=== PATIENT | female | born 1960 | race Caucasian/White ===

== ENCOUNTER 2019-04-28 06:00 | Outpatient (RCR) | payer MEDICAID, SELFPAY | END 2019-05-28 00:01 | LOC: SPT 06:00 | PROVIDERS: Family Provider Family Medicine; Visit Provider Family Medicine | DX: M54.2 Cervicalgia (principal); M54.9 Dorsalgia, unspecified; G89.29 Other chronic pain | CPT/HCPCS: 97110 ×4; 97530 ==

== ENCOUNTER 2019-05-29 06:00 | Outpatient (RCR) | payer MEDICAID, SELFPAY | END 2019-06-28 23:59 | disposition home or self-care (01) | LOC: SPT 06:00 | PROVIDERS: Family Provider Family Medicine; PCP Family Medicine; Visit Provider Family Medicine | DX: G89.29 Other chronic pain (principal); M54.2 Cervicalgia; M54.9 Dorsalgia, unspecified | CPT/HCPCS: 97110 ==

== ENCOUNTER 2019-06-25 15:30 | Outpatient (CLI) | payer MEDICAID, SELFPAY ==
--- NOTE | 2019-06-25 15:50 | XR_ITS ---
WS: [id number] LUMBAR SPINE TECHNIQUE: 3 views of the lumbar spine CLINICAL INFORMATION: BACK PAIN COMPARISON: None. FINDINGS: Mild lumbar curve convex left. Cholecystectomy clips. Normal lumbar alignment. Mild disc space narrow ing L5-S1. Mild facet arthropathy L5-S1. Five [id number] lumbar vertebral bodies. No compression fractures.No spondylolisthesis. Visualiz ed sacroiliac joints are normal. Normal visualized soft tissues. Partially visualized bowel gas patte rn is normal. XR/XR lumbar spine 2-3V* [id number] IMPRESSION: 1. Mild lumbar curve convex left. 2. No acute compression fractures. 3. Mild disc space narrowing L4-L5 and L5-S1. 4. No acute appearing compression fractures.
--- NOTE | 2019-06-25 15:51 | XR_ITS ---
WS: [id number] SHOULDER LEFT TECHNIQUE: 3 views of the left shoulder CLINICAL INFORMATION: LEFT SHOULDER PAIN COMPARISON: FINDINGS: Normal acromioclavicular joint. Normal glenohumeral joint. Acromion is normal in appearance. Normal g lenoid. No evidence of acute fracture dislocation. XR/XR shoulder LT min 2V* [id number] IMPRESSION: Normal left shoulder.
== END 2019-06-25 15:31 | disposition home or self-care (01) ==
LOC: RADWPI 15:34
PROVIDERS: Family Provider Family Medicine; PCP Family Medicine; Visit Provider Family Medicine
DX: M54.5 Low back pain (principal); M25.512 Pain in left shoulder
CPT/HCPCS: 72100; 73030

== ENCOUNTER 2019-06-29 06:00 | Outpatient (RCR) | payer MEDICAID, SELFPAY | END 2019-07-27 23:59 | disposition home or self-care (01) | LOC: SPT 06:00 | PROVIDERS: Family Provider Family Medicine; PCP Family Medicine; Visit Provider Family Medicine | DX: M54.2 Cervicalgia (principal); M54.9 Dorsalgia, unspecified; G89.29 Other chronic pain | CPT/HCPCS: 97110; 97124; 97530 ==

== ENCOUNTER 2019-07-16 13:21 | Outpatient (CLI) | payer MEDICAID, SELFPAY ==
--- NOTE | 2019-07-16 13:30 | MM_ITS ---
WS: [id number] SCREENING DIGITAL MAMMOGRAM WITH CAD HISTORY: screening mammogram COMPARISON: 06/19/2018 and 05/30/2017 Bilateral CC and MLO views submitted. Computer aided detection analyzed. Breast composition: There are scattered areas of fibroglandular density. No suspicious masses, microc alcifications or architectural distortion. Bilateral vascular calcifications. MM/[place] [id number] IMPRESSION: BI-RADS: 2-Benign FOLLOW UP: 1 Year Follow-up
== END 2019-07-16 13:22 | disposition home or self-care (01) ==
LOC: RADSHAW 13:25
PROVIDERS: Family Provider Family Medicine; PCP Family Medicine; Visit Provider Family Medicine
DX: Z12.31 Encounter for screening mammogram for malignant neoplasm of breast (principal)
CPT/HCPCS: 77067

== ENCOUNTER → 2019-08-07 12:00 | Outpatient (BNVA) | payer MEDICAID, SELFPAY | PROVIDERS: Family Provider Family Medicine; PCP Family Medicine; Visit Provider Internal Medicine | DX: B19.20 Unspecified viral hepatitis C without hepatic coma (principal); Z86.19 Personal history of other infectious and parasitic diseases; K74.60 Unspecified cirrhosis of liver; R76.8 Other specified abnormal immunological findings in serum | CPT/HCPCS: 82105; 87522 ==

== ENCOUNTER 2019-10-16 09:07 | Outpatient (CLI) | payer MEDICAID, SELFPAY ==
--- NOTE | 2019-10-16 09:12 | US_ITS ---
WS: [id number] ULTRASOUND ABDOMEN LIMITED CLINICAL INFORMATION: History of liver cirrhosis. Right upper quadrant pain. COMPARISON: None. FINDINGS: Liver Size: Mild hepatomegaly Craniocaudal length: 16.1 cm. Echogenicity: Coarse echogenicity consistent with hepatocellular disease. Surface nodularity: Present Mass (size and location): None. Bile ducts Intrahepatic ducts: Normal. Common bile duct diameter: 0.5 cm. Gallbladder Cholecystectomy Pancreas Normal as visualized. Right kidney: Normal. Hydronephrosis: None. Size: 11.2 cm x 4.9 cm x 3.6 cm. Abdominal aorta and IVC Visualized portions are normal. Ascites: None. US/US liver [id number] IMPRESSION: 1. Mild hepatomegaly with cirrhotic liver. 2. Prior cholecystectomy. 3. Common bile duct measures 5.3 mm. 4. No hydronephrosis in right kidney.
--- NOTE | 2019-10-16 09:12 | XRR_ITS ---
PROCEDURE INFORMATION: Exam: XR Left Shoulder Exam date and time: 10/16/2019 9:13 AM Age: 58 years old Clinical indication: Pain; Shoulder; Left; Additional info: Left shoulder TECHNIQUE: Imaging protocol: XR Left shoulder. Views: 2 or more views. COMPARISON: CR XR shoulder LT min 2V* [id number] 06/25/2019 3:59 PM FINDINGS: Bones/joints: Visualized portions of the clavicle normal. Moderate degenerative changes of the acromioclavicular joint. Glenohumeral joint normal Scapula normal Visualized ribs and visualized pulmonary parenchyma normal Coracoid process normal Soft tissues: Normal. XR/XR shoulder LT min 2V* [id number] IMPRESSION: Moderate degenerative changes of the acromioclavicular joint.
--- NOTE | 2019-10-16 09:12 | XRR_ITS ---
PROCEDURE INFORMATION: Exam: XR Lumbosacral Spine, 2 or 3 Views Exam date and time: 10/16/2019 9:13 AM Age: 58 years old Clinical indication: Low back pain TECHNIQUE: Imaging protocol: XR of the lumbosacral spine, 2 or 3 views. COMPARISON: CR XR lumbar spine 2-3V* [id number] 06/25/2019 3:59 PM FINDINGS: Vertebrae: Moderate degenerative disc disease diffusely reflected as decrease in disc space height and anterior endplate osteophytosis. No spondylolisthesis No pars defect. No fracture. Severe facet hypertrophic changes L4-L5 Soft tissues: Normal. XR/XR lumbar spine 2-3V* [id number] IMPRESSION: Moderate diffuse degenerative disc disease.
== END 2019-10-16 09:08 | disposition home or self-care (01) ==
LOC: RAD 09:08
PROVIDERS: PCP Family Medicine; Visit Provider Internal Medicine
DX: K74.60 Unspecified cirrhosis of liver (principal); M25.512 Pain in left shoulder; R10.11 Right upper quadrant pain; R16.0 Hepatomegaly, not elsewhere classified; M51.36 Other intervertebral disc degeneration, lumbar region
CPT/HCPCS: 72100; 73030; 76705

== ENCOUNTER 2019-10-18 11:14 | Outpatient (CLI) | payer MEDICAID, SELFPAY ==
--- NOTE | 2019-10-18 11:20 | XRR_ITS ---
PROCEDURE INFORMATION: Exam: XR Chest, 2 Views Exam date and time: 10/18/2019 11:57 AM Age: 58 years old Clinical indication: Cough TECHNIQUE: Imaging protocol: XR of the chest Views: 2 views. COMPARISON: CR Chest 1 [place] [id number] 03/01/2019 11:46 AM FINDINGS: Lungs: The lungs are hyperinflated and hyperlucent, with architectural changes compatible with emphysema. No pneumonia or pulmonary edema. Calcified granuloma in the right lung apex. Pleural space: No pleural effusion. No pneumothorax. Heart/Mediastinum: The cardiac silhouette is not enlarged. Bones/joints: Old right 8th rib fracture. Multilevel mild disc degeneration in the thoracic spine. Other findings: There is a left epicardial fat pad. XR/XR chest 2V* [id number] IMPRESSION: Emphysema.
== END 2019-10-18 11:15 | disposition home or self-care (01) ==
LOC: RAD 11:16
PROVIDERS: PCP Family Medicine; Visit Provider Nurse Practitioner Family
DX: R05 Cough (principal); J43.9 Emphysema, unspecified; R10.11 Right upper quadrant pain; K74.60 Unspecified cirrhosis of liver; F10.10 Alcohol abuse, uncomplicated; R53.83 Other fatigue
CPT/HCPCS: 71046; 80053; 80307; 85025; 85610

== ENCOUNTER 2019-10-22 12:36 | Outpatient (CLI) | payer MEDICAID, SELFPAY ==
[2019-10-22 13:14] LABS: Ammonia 49 umol/L (11-51)
[2019-10-22 13:21] LABS: Alcohol Level < 10 mg/dL (0-10)
== END 2019-10-22 12:37 | disposition home or self-care (01) ==
LOC: LAB 12:38
PROVIDERS: PCP Family Medicine; Visit Provider Nurse Practitioner Family
DX: F10.10 Alcohol abuse, uncomplicated (principal); R10.11 Right upper quadrant pain
CPT/HCPCS: 80307; 82140

== ENCOUNTER → 2020-01-16 14:41 | Outpatient (BNVA) | payer MEDICAID, SELFPAY | PROVIDERS: PCP Family Medicine; Visit Provider Family Medicine | DX: Z11.51 Encounter for screening for human papillomavirus (HPV) (principal); Z12.4 Encounter for screening for malignant neoplasm of cervix | CPT/HCPCS: 88175 ==

== ENCOUNTER 2020-02-06 08:28 | Outpatient (CLI) | payer MEDICAID, SELFPAY ==
--- NOTE | 2020-02-06 08:35 | CT_ITS ---
WS: [id number] LDCT LUNG CANCER SCREENING TECHNIQUE: Noncontrast CT of the chest with coronal and sagittal reformatted images. CLINICAL INFORMATION: HX OF TOBACCO USE COMPARISON: DLP: 57.79 mGy.cm DIvol: 1.[address] scans at [facility] use at least one of these dose optimization techniques: automat ed exposure control; mA and/or kV adjustment per patient size (includes targeted exams where dose is matched to clinical indication); or iterative reconstruction. FINDINGS: Calcified granuloma is right upper lobe. Moderate chronic emphysematous changes. Tiny 1 mm noncalcifi ed pulmonary nodule left upper lobe. No other suspicious pulmonary parenchymal opacities. No mediasti nal or hilar lymphadenopathy. Adrenal glands are normal. Thoracic kyphosis with chronic anterior wedg ing in the mid thoracic spine. CT/CT lung screening [id number] IMPRESSION: LUNG-RADS: 2-Benign Appearance or Behavior FOLLOW UP: 12 Month: Continue annual screening with LDCT
== END 2020-02-06 08:29 | disposition home or self-care (01) ==
LOC: RAD 08:30
PROVIDERS: PCP Family Medicine; Visit Provider Family Medicine
DX: Z12.2 Encounter for screening for malignant neoplasm of respiratory organs (principal); Z87.891 Personal history of nicotine dependence
CPT/HCPCS: G0297

== ENCOUNTER → 2020-03-03 08:23 | Outpatient (BNVA) | payer MEDICAID, SELFPAY | PROVIDERS: PCP Family Medicine Adult Medicine; Visit Provider Family Medicine Adult Medicine | DX: Z11.59 Encounter for screening for other viral diseases (principal); J21.9 Acute bronchiolitis, unspecified; J44.9 Chronic obstructive pulmonary disease, unspecified | CPT/HCPCS: 87635 ==

== ENCOUNTER → 2020-05-12 09:38 | Outpatient (BNVA) | payer MEDICAID, SELFPAY | PROVIDERS: PCP Family Medicine Adult Medicine; Visit Provider Family Medicine Adult Medicine | DX: K74.60 Unspecified cirrhosis of liver (principal); E78.5 Hyperlipidemia, unspecified; N18.2 Chronic kidney disease, stage 2 (mild); Z23 Encounter for immunization; M19.90 Unspecified osteoarthritis, unspecified site; Z00.00 Encounter for general adult medical examination without abnormal findings; J44.9 Chronic obstructive pulmonary disease, unspecified | CPT/HCPCS: 80053; 80061; 85025 ==

== ENCOUNTER 2020-06-05 11:04 | Outpatient (CLI) | payer MEDICAID, SELFPAY ==
--- NOTE | 2020-06-05 11:30 | XR_ITS ---
WS: [id number] HIP WITH PELVIS LEFT TECHNIQUE: 3 views of the left hip with pelvis CLINICAL INFORMATION: chronic left hip pain COMPARISON: None. FINDINGS: Osteopenia. Moderate degenerative arthritis left hip with joint space narrowing. No acute fractures. Normal visualized left pubic rami. XR/XR hip LT 2-3V wo/w pel* [id number] IMPRESSION: 1. Osteopenia with moderate degenerative arthritis left hip. 2. No acute fractures.
== END 2020-06-05 11:05 | disposition home or self-care (01) ==
LOC: RADWPI 11:09
PROVIDERS: PCP Family Medicine Adult Medicine; Visit Provider Family Medicine Adult Medicine
DX: M25.552 Pain in left hip (principal); G89.29 Other chronic pain; M85.88 Other specified disorders of bone density and structure, other site
CPT/HCPCS: 73502

== ENCOUNTER → 2020-08-19 09:57 | Outpatient (BNVA) | payer MEDICAID, SELFPAY | PROVIDERS: PCP Family Medicine Adult Medicine; Visit Provider Anesthesiology Pain Medicine | DX: M16.12 Unilateral primary osteoarthritis, left hip (principal); M51.36 Other intervertebral disc degeneration, lumbar region; M47.816 Spondylosis without myelopathy or radiculopathy, lumbar region | CPT/HCPCS: 99204 ==

== ENCOUNTER → 2020-08-26 13:52 | Outpatient (BNVA) | payer MEDICAID, SELFPAY | PROVIDERS: PCP Family Medicine Adult Medicine; Visit Provider Anesthesiology Pain Medicine | DX: M16.12 Unilateral primary osteoarthritis, left hip (principal) | CPT/HCPCS: 20610; 77002; J1030; J3490 ==

== ENCOUNTER → 2020-08-31 07:46 | Outpatient (BNVA) | payer MEDICAID, SELFPAY | PROVIDERS: PCP Family Medicine Adult Medicine; Visit Provider Family Medicine Adult Medicine | DX: Z01.419 Encounter for gynecological examination (general) (routine) without abnormal findings (principal); Z78.9 Other specified health status | CPT/HCPCS: 88175 ==

== ENCOUNTER → 2020-09-30 08:22 | Outpatient (BNVA) | payer MEDICAID, SELFPAY | PROVIDERS: PCP Family Medicine Adult Medicine; Visit Provider Anesthesiology Pain Medicine | DX: G89.29 Other chronic pain (principal); M16.12 Unilateral primary osteoarthritis, left hip; M51.36 Other intervertebral disc degeneration, lumbar region; M47.816 Spondylosis without myelopathy or radiculopathy, lumbar region; M54.2 Cervicalgia | CPT/HCPCS: 99214 ==

== ENCOUNTER → 2020-10-29 09:16 | Outpatient (BNVA) | payer MEDICAID, SELFPAY | PROVIDERS: PCP Family Medicine Adult Medicine; Referring Provider Anesthesiology Pain Medicine; Visit Provider Specialist | DX: M16.0 Bilateral primary osteoarthritis of hip (principal) | CPT/HCPCS: 73502 ==

== ENCOUNTER 2020-11-18 16:31 | Outpatient (CLI) | payer MEDICAID, SELFPAY ==
--- NOTE | 2020-11-18 17:06 | MR_ITS ---
WS: [id number] MRI LEFT HIP without CONTRAST. COMPARISON: Radiographs 10/29/2020 and 06/05/2020 Multiplanar, multisequence imaging is performed without contrast. Moderate to severe narrowing of the LEFT hip joint. There is increased T2 signal in the LEFT hip join t and surrounding the capsule. Marrow edema and cystic changes in the superior acetabulum. There is o steophytic ridging surrounding the acetabulum. Irregularity involving the femoral head from loss of c artilage. Numerous subchondral cystic and osteochondral changes are noted in the acetabulum involving an area of approximately 3.7 x 2.6 cm. No loose body is noted in the LEFT hip joint. No free fluid or adenopathy within the pelvis. The RIGHT hip demonstrates only mild osteoarthritic ch anges and osteophytic ridging around the acetabulum. MR/MR hip LT con* [id number] IMPRESSION: 1. Moderate to severe LEFT hip joint osteophyte arthritis. 2. Numerous subchondral cystic changes and marrow edema involving the superior acetabulum. No loose body identified. 3. Loss of the normal cartilage surrounding the LEFT femoral head. 4. Mild LEFT hip synovitis.
== END 2020-11-18 16:32 | disposition home or self-care (01) ==
LOC: RADSHAW 16:34
PROVIDERS: PCP Family Medicine Adult Medicine; Visit Provider Specialist
DX: M25.552 Pain in left hip (principal); M65.88 Other synovitis and tenosynovitis, other site; M13.852 Other specified arthritis, left hip
CPT/HCPCS: 73721

== ENCOUNTER → 2020-11-24 09:37 | Outpatient (BNVA) | payer MEDICAID, SELFPAY | PROVIDERS: PCP Family Medicine Adult Medicine; Visit Provider Family Medicine Adult Medicine | DX: K74.60 Unspecified cirrhosis of liver (principal); N18.2 Chronic kidney disease, stage 2 (mild); E78.5 Hyperlipidemia, unspecified; M16.12 Unilateral primary osteoarthritis, left hip | CPT/HCPCS: 80053; 80061; 83036; 84443; 85025 ==

== ENCOUNTER → 2020-12-08 09:34 | Day surgery (SDC) | payer MEDICAID, SELFPAY | PROVIDERS: PCP Family Medicine Adult Medicine; Visit Provider Specialist | DX: Z01.818 Encounter for other preprocedural examination (principal) | CPT/HCPCS: 93005 ==

== ENCOUNTER 2020-12-10 14:56 | Outpatient (CLI) | payer MEDICAID, SELFPAY ==
--- NOTE | 2020-12-10 15:01 | MM_ITS ---
WS: [id number] BILATERAL DIGITAL SCREENING MAMMOGRAPHY WITH CAD CLINICAL INFORMATION: last mammogram jun 2019 with f/u in one year HISTORY: Screening mammogram. No current complaints. COMPARISON: July 16, 2019 TECHNIQUE: Bilateral CC and MLO views. FINDINGS: Scattered fibroglandular densities bilaterally. No suspicious focal mass, asymmetry, calcifications, or architectural distortion. No evidence of malignancy. Vascular calcification. MM/[place] [id number] IMPRESSION: BI-RADS: 2-Benign FOLLOW UP: 1 Year Follow-up Recommend return to annual screening mammography.
== END 2020-12-10 14:57 | disposition home or self-care (01) ==
LOC: RADSHAW 14:59
PROVIDERS: PCP Family Medicine Adult Medicine; Visit Provider Family Medicine Adult Medicine
DX: Z20.822 Contact with and (suspected) exposure to COVID-19 (principal); Z12.31 Encounter for screening mammogram for malignant neoplasm of breast
CPT/HCPCS: 77067; 87635

== ENCOUNTER 2020-12-15 06:28 | Observation (INO) | payer MEDICAID, SELFPAY | END 2020-12-17 11:30 | disposition admitted as inpatient to this hospital (09) | LOC: MEDSURG 04-06 11:26 | PROVIDERS: Admitting Provider Specialist; PCP Family Medicine Adult Medicine; Visit Provider Specialist | DX: M16.12 Unilateral primary osteoarthritis, left hip (principal); M87.852 Other osteonecrosis, left femur; J44.9 Chronic obstructive pulmonary disease, unspecified; N18.2 Chronic kidney disease, stage 2 (mild); E78.5 Hyperlipidemia, unspecified; F41.1 Generalized anxiety disorder; K21.9 Gastro-esophageal reflux disease without esophagitis; Z79.899 Other long term (current) drug therapy; Z87.891 Personal history of nicotine dependence | CPT/HCPCS: 27130; 36415; 36416; 72170; 80048; 80053; 81003; 82962; 85025; 88305; 88311; 94640; 96365; 97110; 97116; 97161; 97165; 97530; 97535; C1776; G0378; G0379; J0690; J1170; J2704; J3010; J3370; J3490; J3535; J7030; J7611; J7644 ==

== ENCOUNTER 2020-12-15 11:47 | Inpatient (IN) | payer MEDICAID, SELFPAY ==
[2020-12-08 09:14] VITALS: BMI 26.1
--- NOTE | 2020-12-08 09:34 | ECG_ITS ---
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 Measurements Intervals [place] Rate: 79 P: 71 [place]: 218 QRS: -10 QRSD: 89 T: 60 QT: 390 QTc: 448 Interpretive Statements SINUS RHYTHM WITH FIRST DEGREE AV BLOCK POSSIBLE ANTERIOR MYOCARDIAL INFARCTION [30 ms Q WAVE IN V3/V4, OR R < 0.2 mV IN V4], PROBABLY OLD Compared to ECG 01/29/2018 10:51:05 First degree AV block now present Sinus tachycardia no longer present Myocardial infarct finding still present Electronically Signed On 12-09-2020 0:36:52 CDT by Daina Deutsch M.D. [id number]
--- NOTE | 2020-12-08 10:06 | ANES.PREANE2 ---
Pre-Anesthetic Assessment Pre-Anesthetic Assessment: Height/Weight: Height 1.68 m Weight 73.482 kg Proposed Procedure: Operation Date: 12/15/20 10:50 Proposed Procedures p left Total Hip Arthroplasty 23642 m16.12(Left) - Kelly Leal MD Was Beta Brandon taken within 24 hours: N/A Was Clonidine taken within 24 hours: N/A Social: Social History: Tobacco and No alcohol Exam: Pre-Anes Outpt Exam: alert, oriented x 3 and regular rate & rhythm Additional Exam Findings (including area of procedure): rhonchi Airway: Submandibular: WNL Cervical ROM: WNL MP: 2 Dentition: False Pulmonary: Pulmonary: COPD : : Chronic renal Insufficiency Hepatic: Hepatic: Cirrohsis GI: GI: GERD Musc/skel: Musc/skel: OA/DJD Neuropsych: Neuropsych: Anxiety and Depression Anesthetic Plan: ASA status: 3 Anesthesia: Regional (specify below) (SAB) Risk of > 500 ml blood loss (7ml/kg in children): Yes, adequate IV access and fluids planned PFSH Anesthesia PFSH: Medical History Acute bronchiolitis CKD (chronic kidney disease) stage 2, GFR 60-89 ml/min COPD (chronic obstructive pulmonary disease) Dyslipidemia Encounter for screening for lung cancer Encounter for wellness examination ETOH abuse Generalized anxiety disorder GERD (gastroesophageal reflux disease) Hammer toe History of hepatitis C virus infection Low back pain Oral thrush Osteoarthritis (arthritis due to wear and tear of joints) Screening for human papillomavirus (HPV) Screening mammogram, encounter for Seizure SOB (shortness of breath) Surgical History History of cholecystectomy History of tonsillectomy History of tonsillectomy and adenoidectomy History of tubal ligation Social History Smoking and tobacco status: former smoker Alcohol intake: current Alcohol intake frequency: holidays/special occasions only Lives independently: Yes Household members: family Marital status: Single Current occupational status: disabled History of recent travel: No Current gender identity: Female Data Anesthesia Cardiac Studies: No Data to Display
[2020-12-15] VITALS (30 sets, daily range): BP systolic 106–153; BP diastolic 66–91; PULSE 65–89; RESP 14–174; TEMP 36.2–36.9; O2SAT 91–100
[2020-12-15] MEDS: sodium chloride 0.9% 1,000 ML 30 ML IV (06:32)
[2020-12-15] MEDS: CELEcoxib 200 mg Capsule 400 MG PO (06:38)
[2020-12-15] MEDS: acetaminophen 1,000 MG/100 ML PIGGYBACK 400 MG IV ×3 (06:40→23:18)
--- NOTE | 2020-12-15 06:41 | P.ANESUD_ITS ---
Pre-Anesthetic Update Pre-Anesthetic Assessment: Date of Surgery/Procedure: 12/15/20 Preop Marnie gnosis: Severe primary osteoarthritis left hip Proposed Procedure: Operation Date: 12/15/20 07:00 Proposed Procedures p left Total Hip Arthroplasty 60529 m16.12(Left) - Kelly Leal MD Any changes to Pre-Anesthetic Assessment?: No Last Intake: Intake Last Liquid Date 12/14/20 Last Liquid Time 22:30 Last Solid Date 12/14/20 Last Solid Time 22:30 Vitals: Temperature 97.1 F L 12/15/20 06:33 Pulse Rate 78 12/15/20 06:33 Respiratory Rate 18 12/15/20 06:33 Blood Pressure 140/83 12/15/20 06:33 Blood Pressure Soco n 102 12/15/20 06:33 Pulse Oximetry 95 12/15/20 06:33 Oxygen Delivery Me thod 12/15/20 06:34 Exam: Pre-Anes Outpt Exam: alert, oriented x 3, clear to auscultation bilaterally and regular rate & rhythm Additional Exam Findings (including area of procedure): R coarse breath sound, cleared with second breath - took inhaler this morning Cardiac Studies: No Data to Display
[2020-12-15 06:42] LABS: Basophils # 0.1 10^3/uL (0.0-0.1); Basophils % 0.7 %; Eosinophils # 0.5 10^3/uL (0.0-0.8); Eosinophils % 6.7 %; Hematocrit 45.1 % (37.0-47.0); Hemoglobin 15.1 g/dL (11.5-15.3); Lymphocytes # 1.9 10^3/uL (0.8-4.8); Lymphocytes % 26.3 %; Mean Corpuscular HGB Conc 33.5 g/dL (30.0-36.0); Mean Corpuscular Hemoglobin 31.9 pg (28.0-34.0); Mean Corpuscular Volume 95.1 fL (81-99); Mean Platelet Volume 10.4 fL (7.4-10.4); Monocytes # 0.6 10^3/uL (0.2-0.9); Monocytes % 8.8 %; Neutrophils # 4.15 10^3/uL (1.8-7.7); Nucleated Red Blood Cells % 0 %; Platelet Count 251 10^3/cmm (130-400); Red Blood Count 4.74 10^6/uL (4.1-5.3); Red Cell Distribution Width 13.2 % (12.1-15.1); White Blood Count 7.3 10^3/uL (4.0-10.0)
--- NOTE | 2020-12-15 06:58 | W.PM.OPSUD ---
Surgery/Procedure H&P Update DATE OF PROCEDURE: December 15, 2020 DATE H&P PERFORMED: 11/26/20 H&P UPDATE INFORMATION: I have reviewed H&P completed within last 30 days, I have examined patient prior to procedure, Changes to prior documentation as noted here and H&P is in [facility] [place] on date indicated PREOP DIAGNOSIS: Severe primary osteoarthritis left hip PLANNED PROCEDURE: Operation Date: 12/15/20 07:00 Proposed Procedures p left Total Hip Arthroplasty 14845 m16.12(Left) - Kelly Leal MD Related Problem List Diagnoses (1) Osteoarthritis of left hip: Qualifiers: Osteoarthritis type: primary Qualified Code(s): M16.12 - Unilateral primary osteoarthritis, left hip
[2020-12-15 07:13] LABS: Alanine Aminotransferase 23 U/L (0-33); Albumin Level 4.2 g/dL (3.5-5.2); Alkaline Phosphatase 109 IU/L (35-105); Aspartate Amino Transferase 28 U/L (0-32); Blood Urea Nitrogen 15 mg/dL (8-23); Calcium 8.7 mg/dL (8.5-10.5); Carbon Dioxide 24 mmol/L (22-29); Chloride 101 mmol/L (98-107); Globulin 2.9 g/dL (1.3-4.6); Glomerular Filtration Rate 63.4 mL/min (90-130); Glucose 107 mg/dL (65-115); Osmolality Calculated 287 mOsm/kg (285-295); Sodium 138 mmol/L (136-145); Total Bilirubin 0.6 mg/dL (0.15-1.2); Total Protein 7.1 g/dL (6.6-8.7)
[2020-12-15 08:09] LABS: Add Urine Microscopic? NO; Charge for UA Resulting for Rev
[2020-12-15 08:39] LABS: Bilirubin Urine Neg (Negative); Blood Urine Neg (Negative); Glucose Urine UA Norm (Normal); Ketones Urine Negative (Negative); Leukocyte Esterase Urine Negative (Negative); Nitrate Urine Negative (Negative); Protein Urine Neg (Negative); Specific Gravity, Urine 1.015 (1.005-1.030); Urine Appearance Clear (CLEAR); Urine Color Yellow (Yellow); Urobilinogen Urine Norm (Negative); pH Urine 5 (5-7)
[2020-12-15] MEDS: ceFAZolin 1,000 mg SDV 1000 MG IRRIGATION (09:10)
[2020-12-15] MEDS: vancomycin 1,000 MG SDV 1000 MG XX (09:12)
--- NOTE | 2020-12-15 10:42 | SUR.PHASEI ---
1039 PATIENT TO PACU FROM OR. RR EVEN AND UNLABORED. DRESSING TO LEFT HIP, CDI, CODY CATH IN PLACE.
--- NOTE | 2020-12-15 10:55 | XR_ITS ---
WS: [id number] PELVIS: AP VIEW SUBMITTED HISTORY: S/P DI COMPARISON: None available. Status post LEFT hip arthroplasty in good position and alignment. No acute fractures. Very slight renato rowing of the RIGHT hip joint. XR/XR pelvis 1-2V* [id number] IMPRESSION: Status post RIGHT total hip arthroplasty in good position and alignment.
--- NOTE | 2020-12-15 11:13 | PM.OP ---
Operative Report Date of procedure: December 15, 2020 Pre-op Diagnosis: Severe primary osteoarthritis left hip Post-op diagnosis: same Post-op Findings: Degenerative osteoarthritis left hip Procedure Done: Left total hip arthroplasty Implants: The Orick total hip system with the following implants: A 48 mm Trident II solid back acetabular shell, an MDM cementless liner 38 mm inner diameter by D alpha code and Accolade II size 5 with a 132 degree neck angle hip stem and a head size 22.2 mm outer diameter +0 mm neck offset with a moravian X3 insert size 22.2 mm inner diameter by 38D Specimens removed/disposition: Femoral head sent to pathology Pathology: other Pathology: Femoral head Surgeon: Kelly Leal Cont[facility] Stitcher[facility] Anesthesia: MAC (With spinal, ASA 3) Estimated blood loss (mL): 150 IV fluids (mL): 1,200 Urine output (mL): 450 Complications: None Findings: Degenerative osteoarthritis of the hip. Post operatively was stable to external rotation and stable at 90 degrees of flexion with 80 degrees of internal rotation and 30 degrees of adduction. Leg lengths appear to be equal. Condition: stable Disposition: PACU (Then to floor for postoperative rehabilitation and pain management) Brief History: This 60-year-old woman was in the hip interfered with her activities of daily living, and she had significant pain every day. She was unresponsive to conservative measures. MRI confirmed moderate to severe degenerative there are multiple cystic changes within the femoral head. After discussion, the patient wished to proceed with operative intervention in the form of a left total hip arthroplasty. Risks and complications were discussed with her. Questions were answered. Consents were signed preoperatively. Procedure: Patient was brought to the operating theater. She was transferred to the operating room table and subsequently administered a spinal anesthesia with MAC, ASA 3. Following administration of adequate anesthesia, the patient was placed in full lateral position and held in position with a pegboard. Also, the patient had minimal movement in her left lower extremity preoperatively. The patient's lower extremity was then prepped and draped in usual fashion utilizing DuraPrep. It was draped free. Following prepping and draping a surgical pause was performed. At the time of surgical pause, we identified the site and side of surgery. We also identified the patient and preoperative surgical markings. Confirmation was made of equipment availability. Additionally, the patient's preoperative IV antibiotic, Ancef 2 g, was confirmed as being given in a timely fashion and being the appropriate antibiotic. She received TXA 1 g preoperatively as well. Following the surgical pause, an incision was made centering over the patient's greater trochanter continuing proximally and distally as necessary to allow access to the hip joint. Dissection continued through skin and soft tissues using a scalpel, and hemostasis was obtained using electrocautery. The tensor fascia aubrie was identified and incised longitudinally. Sciatic nerve was identified and protected throughout the surgical procedure. A Charnley U retractor was placed after the tensor fascia aubrie had been incised longitudinally, and the sciatic nerve had been identified. The hip was internally rotated, and the piriformis muscle was identified and tagged. Piriformis muscle along with the remaining short external rotators were then incised from the posterior aspect of the hip joint. These were retracted posteriorly. The capsule was entered in a T-type fashion with the edges being tagged, and subsequently the hip was dislocated. Following hip dislocation, a femoral neck osteotomy was accomplished in the appropriate position. We then evaluated the acetabulum. The femur was retracted anteriorly. Soft tissues were retracted and the labrum was removed. It was difficult to obtain exposure secondary to the degree of osteoarthritic change. We then began reaming. Once the femoral head was removed, there was noted to be significant loss of cartilage over the femoral head and over the acetabulum. We reamed to 47 mm to allow for a size 48 mm acetabular shell. The acetabulum was impacted into position. It was noted that the acetabulum matched the bony anatomy aside from a large posterior osteophyte which was removed uneventfully. There were osteophytes anteriorly which were removed as well. The cup was noted to seat nicely and had good fixation upon impact. Dome hole plug was placed. Also, we confirmed that the acetabular insert was completely seated prior to addressing the femur. Attention was directed to the proximal femur. The proximal femur was lifted out of the wound. A canal finder was passed, and we then used the reamer to lateralize. We then began broaching. We broached sequentially and had excellent fit and fill with the size 5 Accolade II 132 degree femoral component. A trial reduction was accomplished with a +0 mm offset femoral head once the size 5 broach was placed in position. The patient had stability with this construct, and it was not felt that we had increased her leg length. With this in place, we had the above stabilities, and at that time, we felt that we had restored leg lengths. We also felt that we had excellent stability noted above. Therefore, trial components were removed after the hip was dislocated. The size 5 Accolade II 132 degree neck angle hip stem was impacted into position without difficulty and onto this was placed a +0 mm offset by 28 mm outer diameter femoral head inside of the MDM size 38 mm insert with a 22.2 mm inner diameter. With this construct, we had the above-noted stability. The stem was noted to seat nicely prior to placement of the femoral head. The wound was copiously irrigated with Betadine. At this time, with all components in appropriate position, the hip was reduced. Following reduction of the prosthesis once again, we confirmed the stability of the hip. Leg lengths were also felt to be satisfactory. Being satisfied with the prosthesis, attention was directed to closure. Closure was accomplished with 0 Vicryl in the capsular tissues. Piriformis was reattached with 0 Vicryl as well. Tensor fascia aubrie was closed with 0 Vicryl in an interrupted fashion. The subcutaneous tissues were closed with 2-0 Monocryl. Vancomycin powder and a Gelfoam thrombin mixture was placed into the wound as well. The skin was closed with a running 3-0 Monocryl followed by Dermabond, Prineo, and OpSite. The patient was placed in an abduction pillow. She was returned the Recovery Room in a satisfactory condition and will be discharged to the floor for postoperative rehabilitation and pain management. There were no complications. Associated Problem List Diagnoses (1) Osteoarthritis of left hip: Qualifiers: Osteoarthritis type: primary Qualified Code(s): M16.12 - Unilateral primary osteoarthritis, left hip
--- NOTE | 2020-12-15 12:02 | SUR.PHASEI ---
1149 PATIENT TO MED SURG. RR EVEN AND UNLABORED. DRESSING TO LEFT HIP WITH FIRST ICE IN PLACE. CODY CATH IN PLACE.
[2020-12-15] MEDS: chlorhexidine gluconate 0.12% Btl 473 mL 30 ML MUCOUS MEM ×3 (14:53→21:37)
[2020-12-15] MEDS: oxyCODONE 5 mg IR Tab/Cap PO ×2 (16:18→23:25)
[2020-12-15] MEDS: sennosides-docusate Tablet 2 TAB PO (18:16)
[2020-12-15] MEDS: iron polysaccharide complex 150 mg Capsule PO (18:16)
[2020-12-15] MEDS: calcium carbonate 500 mg Chew Tablet 1000 MG PO (18:17)
[2020-12-15] MEDS: CELEcoxib 200 mg Capsule PO (18:17)
[2020-12-15] MEDS: mupirocin oint 22 gm 1 APPLIC NASAL (18:29)
--- NOTE | 2020-12-15 18:59 | ANE.PACU2 ---
Inpatient post-anesthesia follow up: Airway intact: Yes Vital signs: Temperature 97.6 F Pulse Rate 89 Respiratory Rate 18 Blood Pressure 115/76 Pulse Oximetry 96 Oxygen Delivery Me thod Nasal Cannula Oxygen Flow Rate 2 Fraction of Inspir ed Oxygen Hydration adequate: Yes Nausea and vomiting: No Pain level: 2 Mental status: Baseline
[2020-12-16] VITALS (16 sets, daily range): BP systolic 122–180; BP diastolic 66–82; PULSE 76–103; RESP 16–22; TEMP 36.4–36.8; O2SAT 91–93
[2020-12-16] MEDS: acetaminophen 1,000 MG/100 ML PIGGYBACK 400 MG IV (06:41)
[2020-12-16] MEDS: CELEcoxib 200 mg Capsule PO ×2 (06:42→18:28)
[2020-12-16 07:28] LABS: Basophils % 0.5 %; Eosinophils # 0.4 10^3/uL (0.0-0.8); Eosinophils % 5.1 %; Hematocrit 39.6 % (37.0-47.0); Hemoglobin 12.9 g/dL (11.5-15.3); Lymphocytes % 11.6 %; Mean Corpuscular HGB Conc 32.6 g/dL (30.0-36.0); Mean Corpuscular Hemoglobin 32.1 pg (28.0-34.0); Mean Corpuscular Volume 98.5 fL (81-99); Mean Platelet Volume 10.5 fL (7.4-10.4); Monocytes # 0.9 10^3/uL (0.2-0.9); Monocytes % 10.1 %; Neutrophils # 5.98 10^3/uL (1.8-7.7); Neutrophils % 71.4 %; Nucleated Red Blood Cells % 0 %; Platelet Count 206 10^3/cmm (130-400); Red Blood Count 4.02 10^6/uL (4.1-5.3); Red Cell Distribution Width 13.3 % (12.1-15.1); White Blood Count 8.4 10^3/uL (4.0-10.0)
[2020-12-16 07:47] LABS: Anion Gap 13.4 (5-19); Blood Urea Nitrogen 15 mg/dL (8-23); Calcium 8.2 mg/dL (8.5-10.5); Carbon Dioxide 23 mmol/L (22-29); Chloride 104 mmol/L (98-107); Glomerular Filtration Rate 84.8 mL/min (90-130); Glucose 136 mg/dL (65-115); Osmolality Calculated 285 mOsm/kg (285-295); Potassium 4.4 mmol/L (3.5-5.1); Sodium 136 mmol/L (136-145)
[2020-12-16] MEDS: ipratropium 0.5 mg/2.5 mL Neb INHALATION (08:06)
[2020-12-16] MEDS: iron polysaccharide complex 150 mg Capsule PO ×2 (09:58→17:28)
[2020-12-16] MEDS: multivitamin therapeutic Tablet 1 TAB PO (09:58)
[2020-12-16] MEDS: duloxetine 30 mg Capsule PO ×2 (09:58→17:29)
[2020-12-16] MEDS: aspirin 325 mg EC Tablet PO (09:58)
[2020-12-16] MEDS: gabapentin 300 mg Capsule 600 MG PO ×2 (09:58→17:28)
[2020-12-16] MEDS: cholecalciferol (vitamin D3) 1,000 unit Tablet 1000 UNIT PO (09:58)
[2020-12-16] MEDS: spironolactone 25 mg Tablet PO (09:58)
[2020-12-16] MEDS: calcium carbonate 500 mg Chew Tablet 1000 MG PO ×2 (09:58→17:28)
[2020-12-16] MEDS: sertraline 100 mg Tablet PO (09:58)
[2020-12-16] MEDS: atorvastatin 40 mg Tablet 20 MG PO (09:58)
[2020-12-16] MEDS: mupirocin oint 22 gm 1 APPLIC NASAL ×2 (09:59→17:27)
[2020-12-16] MEDS: chlorhexidine gluconate 0.12% Btl 473 mL 30 ML MUCOUS MEM ×3 (09:59→17:25)
[2020-12-16] MEDS: pantoprazole DR 40 mg Tablet PO ×2 (09:59→17:28)
[2020-12-16] MEDS: sennosides-docusate Tablet 2 TAB PO ×2 (09:59→17:28)
--- NOTE | 2020-12-16 10:16 | PC.CHAP ---
Pastoral Care Encounter/Spiritual Assessment Type of Contact [] Declined curing pickling packer visit [] Patient/Family/Request visit [] Outpatient visit [] Follow-up visit [] Physician referral [] Code/Alert [x] Routine visit [] Staff referral [] Actively dying [] Patient sleeping [] Family support [] [] Out of room [] Palliative care [] [] Receiving care in room [] Pre-surgical visit [] Trauma [] Long length of stay [] ICU visit [] Other: Relational/Emotional Strength [x] Patient feels connected with others/family/visitors/staff [] Distress [] Loneliness/isolation [] Abandonment Spirituality of Patient [x] Person of Maude [x] Attends Baptism of their Maude x] Believes in Prayer [x] Reads Bible or Caodaism materials [] There are Spiritual issues to be addressed Carpentry Professional Interventions [x] Prayer [x] Active listening [x] Non-anxious presence [x] Spiritual/emotional support [] Crisis/trauma care [] Spiritual counseling [] Bereavement support [] Provided bereavement packet [] Provided Bible/devotional materials [] Provided toy/stuffed animal, coloring book to patient or family member [] Provided Communion [] Anointing/Shobonier [] Salvation x[] Completed spiritual assessment [] Other: Impact on Illness or Injury [] Angry [] Fearful [] Anxious [] Often cries [] Exhaustion [] Unable to work [] Unable to attend sikhism [] Unable to walk/stand [] Unable to read [] Unable to drive [] Unable to eat/drink [] Unable to sleep [] Unable to be with family [] Patient intubated [] Other: Summary Time spent with patient 10 min
--- NOTE | 2020-12-16 15:06 | PM.PN ---
Subjective Subjective: Interval history: The patient is doing well. She is seen in her room. She is working with physical therapy. She was a bit wheezy this morning, but she responded to inhalers. She is anxious about going home, and physical therapy notes that she is a bit impulsive . They have concerns about her going home until she has further treatment under physical therapy to better train her for independent ambulation. Vitals/I&O/Wt Last Vital Signs Temp 97.8 F 12/16/20 12:00 Pulse 80 12/16/20 12:00 Resp 16 12/16/20 12:00 BP 180/74 12/16/20 12:00 Pulse Ox 91 12/16/20 12:00 12/16/20 12/16/20 12/16/20 06:59 14:59 22:59 Intake Total 790 / 3000 150 / 150 Output Total 500 / 1550 250 / 250 Balance 290 / 1450 -100 / -100 Physical Exam Const: COMMON NORMALS: no acute distress, average body habitus, patient oriented x3 and alert GENERAL APPEARANCE: cooperative and comfortable ORIENTATION/CONSCIOUSNESS: Yes awake HENMT: COMMON NORMALS: normocephalic and atraumatic HEAD & SCALP: normocephalic and atraumatic Eye: GENERAL EYE: appearance normal, both eyes and all related structures Chest: COMMONS NORMALS: normal inspection of the chest Resp: COMMON NORMALS: normal respiratory effort EFFORT & INSPECTION: Yes able to speak in complete sentences and Yes symmetric chest movement Extremity: LEFT LOWER EXTREMITY: Yes hip joint (There is minimal swelling and no erythema.) Left hip: Yes inspection (No drainage on the dressing.), Yes palpation (No tenderness to palpation.), Yes ROM (Not evaluated.) and Yes neurovascular exam (Intact distally) Neuro: COMMON NORMALS: patient oriented x3 SENSORIUM/ORIENTATION: Yes alert Psych: COMMON NORMALS: mental status grossly normal APPEARANCE: Yes grossly normal ATTITUDE: Yes calm and Yes engaged ATTENTION/CONCENTRATION: Yes attention grossly intact Skin: COMMON NORMALS: no rashes or lesions noted GENERAL SKIN EXAM: no rashes or lesions noted Urinary Catheter Management^: Mustafa: Cath Placed During This Visit: yes, but has since been removed by the nurse Reason for Continuing Indwelling Catheter: Decision to DC Catheter Urinary Catheter Date of Insertion: 12/15/20 Urinary Catheter Time of Insertion: 08:00 Date Urinary Catheter Removed: 12/16/20 Time Urinary Catheter Discontinued: 10:25 Data : 12/16/20 06:58 12/16/20 06:58 A&P Assessment and plan (1) Osteoarthritis of left hip: Status: Acute Qualifiers: Osteoarthritis type: primary Qualified Code(s): M16.12 - Unilateral primary osteoarthritis, left hip (2) Status post total hip replacement, left: Patient underwent left total hip arthroplasty. They tolerated the procedure well and currently, she is working with physical therapy. Plans are made for discharge, but the patient is unable to have physical therapy, and and working with physical therapy here at the hospital, they had significant concerns that she was unsafe for discharge to home secondary to violation of her hip precautions. They noted that she was very independent and very impulsive. They were concerned that she would violate her hip precautions without further training. For this reason, the patient is maintained in the hospital for an extra day of physical therapy and gait training. Status: Acute Attestations Medical Necessity Statement*: Patient requires ongoing hospitalization for gait training and safety. She will require further physical therapy while here in the hospital. 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
[2020-12-16] MEDS: acetaminophen 500 mg Tablet 1000 MG PO (15:12)
[2020-12-16 17:31] LABS: Glucose Point of Care 129 mg/dL (70-110)
[2020-12-16 21:51] LABS: Glucose Point of Care 122 mg/dL (70-110)
[2020-12-17] VITALS (15 sets, daily range): BP systolic 114–147; BP diastolic 70–83; PULSE 3–99; RESP 17–18; TEMP 36.8–36.9; O2SAT 91–95
[2020-12-17] MEDS: acetaminophen 500 mg Tablet 1000 MG PO ×2 (01:15→10:54)
[2020-12-17] MEDS: CELEcoxib 200 mg Capsule PO (06:25)
[2020-12-17 06:50] LABS: Glucose Point of Care 94 mg/dL (70-110)
[2020-12-17 07:13] LABS: Basophils % 0.3 %; Eosinophils # 0.4 10^3/uL (0.0-0.8); Eosinophils % 3.9 %; Hematocrit 35.5 % (37.0-47.0); Hemoglobin 11.7 g/dL (11.5-15.3); Lymphocytes # 1.2 10^3/uL (0.8-4.8); Lymphocytes % 11.9 %; Mean Corpuscular Hemoglobin 32.2 pg (28.0-34.0); Mean Corpuscular Volume 97.8 fL (81-99); Mean Platelet Volume 10.6 fL (7.4-10.4); Monocytes # 0.9 10^3/uL (0.2-0.9); Monocytes % 9.3 %; Neutrophils # 7.25 10^3/uL (1.8-7.7); Neutrophils % 74.1 %; Nucleated Red Blood Cells % 0 %; Platelet Count 173 10^3/cmm (130-400); Red Blood Count 3.63 10^6/uL (4.1-5.3); Red Cell Distribution Width 13.1 % (12.1-15.1); White Blood Count 9.8 10^3/uL (4.0-10.0)
[2020-12-17] MEDS: cholecalciferol (vitamin D3) 1,000 unit Tablet 1000 UNIT PO (10:53)
[2020-12-17] MEDS: calcium carbonate 500 mg Chew Tablet 1000 MG PO (10:53)
[2020-12-17] MEDS: aspirin 325 mg EC Tablet PO (10:53)
[2020-12-17] MEDS: sertraline 100 mg Tablet PO (10:53)
[2020-12-17] MEDS: duloxetine 30 mg Capsule PO (10:54)
[2020-12-17] MEDS: iron polysaccharide complex 150 mg Capsule PO (10:54)
[2020-12-17] MEDS: gabapentin 300 mg Capsule 600 MG PO (10:54)
[2020-12-17] MEDS: atorvastatin 40 mg Tablet 20 MG PO (10:55)
[2020-12-17] MEDS: pantoprazole DR 40 mg Tablet PO (10:55)
[2020-12-17] MEDS: loratadine 10 mg Tablet PO (10:55)
[2020-12-17] MEDS: multivitamin therapeutic Tablet 1 TAB PO (10:55)
[2020-12-17] MEDS: spironolactone 25 mg Tablet PO (10:56)
[2020-12-17] MEDS: chlorhexidine gluconate 0.12% Btl 473 mL 30 ML MUCOUS MEM ×2 (10:57→12:40)
[2020-12-17 12:41] LABS: Glucose Point of Care 120 mg/dL (70-110)
--- NOTE | 2020-12-17 15:07 | P.DS_ITS ---
Discharge Providers Date of Admission: 12/17/20 11:31 Date of Discharge: December 17, 2020 Attending Provider at Admission: Kelly Leal MD Attending Provider at Discharge: Kelly Leal MD Primary Care Provider: Willie Gipson MD Diagnoses at Discharge Discharge Diagnosis (1) Osteoarthritis of left hip: Status: Acute Qualifiers: Osteoarthritis type: primary Qualified Code(s): M16.12 - Unilateral primary osteoarthritis, left hip (2) Status post total hip replacement, left: Status: Acute Permanent problem details: [place] total hip system with the following implants: A 48 mm Trident II solid back acetabular shell, an MDM cementless liner 38 mm inner diameter by D alpha code and Accolade II size 5 with a 132 degree neck angle hip stem and a head size 22.2 mm outer diameter +0 mm neck offset with a oriental orthodox X3 insert size 22.2 mm inner diameter by 38D Reason for Visit Reason for Visit: left total hip arthroplasty Hospital Course Hospital Course This 60-year-old woman presented to [facility] on December 15 for left total hip arthroplasty. The patient underwent an uneventful procedure. Postoperatively, she was brought to the hospital for postoperative rehab and pain management under observation status. Subsequently, the patient was noted to have impulsiveness which caused her to be unsafe for discharge to home. She was not a candidate secondary to insurance for inpatient rehabilitation. She was maintained in the hospital an additional day for gait training and to reinforce hip precautions. On the second postoperative day, today, December 17, the patient was felt to be safe. I discussed the case with physical therapy and he noted that she did much better and was able to ambulate safely and according to precautions. The patient will be discharged home today and is to follow-up with me in the office in approximately 2 weeks time. Her dressing is dry and benign. Physical Exam Const: COMMON NORMALS: no acute distress, average body habitus, patient oriented x3 and alert GENERAL APPEARANCE: cooperative and comfortable ORIENTATION/CONSCIOUSNESS: Yes awake HENMT: COMMON NORMALS: normocephalic and atraumatic HEAD & SCALP: normocephalic and atraumatic Eye: GENERAL EYE: appearance normal, both eyes and all related structures Chest: COMMONS NORMALS: normal inspection of the chest Resp: COMMON NORMALS: normal respiratory effort EFFORT & INSPECTION: Yes able to speak in complete sentences and Yes symmetric chest movement Extremity: LEFT LOWER EXTREMITY: Yes hip joint Left hip: Yes inspection (Dressing is dry and intact. There is no drainage), Yes palpation (Nontender), Yes ROM (Not evaluated) and Yes neurovascular exam (Intact distally) Neuro: COMMON NORMALS: patient oriented x3 SENSORIUM/ORIENTATION: Yes alert Psych: COMMON NORMALS: mental status grossly normal APPEARANCE: Yes grossly normal ATTITUDE: Yes calm and Yes engaged ATTENTION/CONCENTRATION: Yes attention grossly intact Skin: COMMON NORMALS: no rashes or lesions noted GENERAL SKIN EXAM: no rashes or lesions noted Urinary Catheter Management^: Mustafa: Cath Placed During This Visit: yes, but has since been removed by the nurse Reason for Continuing Indwelling Catheter: Decision to DC Catheter Urinary Catheter Date of Insertion: 12/15/20 Urinary Catheter Time of Insertion: 08:00 Date Urinary Catheter Removed: 12/16/20 Time Urinary Catheter Discontinued: 10:25 Discharge Data Data Completed and Pending: Completed Studies During Hospitalization Category Date Time Status XR pelvis 1-2V* 7 2170 Routine Exams 12/15/20 10:55 Completed Pending at discharge Category Date Time Status Complete Blood Co unt w/Auto AM LABS Lab 12/18/20 04:00 Uncollected Pathology: Surgic al [PTH] Routine Pth 12/15/20 10:47 Received Labs from last 24 hours 12/17/20 12/17/20 12/17/20 10:50 07:05 06:26 WBC 9.8 RBC 3.63 L Hgb 11.7 Hct 35.5 L MCV 97.8 MCH 32.2 MCHC 33.0 RDW 13.1 Plt Count 173 MPV 10.6 H Neut % (Auto) 74.1 Lymph % (Auto) 11.9 Hickman % (Auto) 9.3 Eos % (Auto) 3.9 Baso % (Auto) 0.3 Neut # (Auto) 7.25 Lymph # (Auto) 1.2 Hickman # (Auto) 0.9 Eos # (Auto) 0.4 Baso # (Auto) 0.0 Nucleated RBC % (a uto) 0 Nucleated RBCs # 0.0 POC Glucose 120 H 94 12/16/20 12/16/20 20:50 17:28 WBC RBC Hgb Hct MCV MCH MCHC RDW Plt Count MPV Neut % (Auto) Lymph % (Auto) Hickman % (Auto) Eos % (Auto) Baso % (Auto) Neut # (Auto) Lymph # (Auto) Hickman # (Auto) Eos # (Auto) Baso # (Auto) Nucleated RBC % (a uto) Nucleated RBCs # POC Glucose 122 H 129 H Vitals: Last Vital Signs Temp 98.2 F 12/17/20 12:13 Pulse 3 L 12/17/20 12:13 Resp 18 12/17/20 12:13 BP 136/70 12/17/20 12:13 Pulse Ox 92 12/17/20 12:13 Discharge Plan Discharge Patient Disposition: Home Condition: Stable Prescriptions: New oxycodone 5 mg Tablet 5 mg PO Q4H PRN (Reason: Moderate Pain) 7 Days Qty: 30 RF: 0 acetaminophen 500 mg Tablet 1,000 mg PO Q8H 15 Days Qty: 0 RF: 0 aspirin 325 mg Tablet,Delayed Release (Dr/Ec) 325 mg PO DAILY 30 Days Qty: 0 RF: 0 Continued lorazepam [Ativan] 1 mg tablet 2 mg PO DAILY PRN (Reason: Anxiety) RF: 0 duloxetine 30 mg capsule,delayed release(DR/EC) 30 mg PO BID RF: 0 gabapentin 300 mg capsule 600 mg PO BID RF: 0 multivitamin Tablet 1 tab PO DAILY RF: 0 Liver Complex 250-250 mg tablet 1 tab PO DAILY RF: 0 Combivent Respimat 20-100 mcg/actuation mist 1 puff inhalation Q4H Qty: 4 RF: 5 ipratropium-albuterol 0.5 mg-3 mg(2.5 mg base)/3 mL solution for nebulization 3 ml INHALATION QID PRN (Reason: wheezing) Qty: 90 RF: 2 loratadine 10 mg capsule 10 mg PO .once daily 30 Days Qty: 30 RF: 5 simvastatin 10 mg tablet 10 mg PO DAILY Qty: 30 RF: 2 Spiriva with HandiHaler 18 mcg capsule, w/inhalation device See Rx Instructions .ROUTE .COMPLEX Qty: 30 RF: 2 spironolactone 25 mg tablet See Rx Instructions .ROUTE .COMPLEX Qty: 30 RF: 2 pantoprazole 40 mg tablet,delayed release (DR/EC) 40 mg PO BID 30 Days Qty: 60 RF: 1 Symbicort 160-4.5 mcg/actuation HFA aerosol inhaler See Rx Instructions .ROUTE .COMPLEX Qty: 10.2 RF: 2 sertraline [Zoloft] 100 mg tablet 100 mg PO QDAY 30 Days Qty: 30 RF: 2 meloxicam 15 mg tablet 15 mg PO DAILY Qty: 30 RF: 3 Discharge Orders: Discharge Order (Routine); Ordered 12/17/20 Ordered By: Kelly Leal Other Ambulatory Orders: DME: Walker (Order) Location: None Selected Ordered By: Kelly Leal Referrals: Kelly Leal MD [Physician] - 12/30/20 10:15 am Discharge Diet: Advance as tolerated and Usual diet Discharge Activity: Increase activity as tolerated, Limit activity as instructed, Use walker/crutches as instructed and As per PT/OT instructions Patient Instructions: Opioid Safety Activity Restrictions/Additional Instructions: Posterior precautions. Use walker or crutches. Advance as instructed during your hospital stay. Discharge Attestations Time Spent in Discharge Care*: greater than 30 min Quality Metrics Clinical Quality Measures During this hospital stay, did patient experience: None Coding Level of Care Code Acute [facility] note Diagnoses Osteoarthritis of left hip M16.12 Osteoarthritis type: primary Status post total hip replacement, left Z96.642
--- NOTE | 2020-12-18 17:15 | PC.RESP ---
PULMONARY REHAB INFORMATION SENT TO PATIENT.
== END 2020-12-17 15:55 | disposition home or self-care (01) | DRG 470 ==
LOC: MEDSURG 11:49
PROVIDERS: Admitting Provider Specialist; PCP Family Medicine Adult Medicine; Visit Provider Specialist
PROC: 0SRB0JA Replacement of Left Hip Joint with Synthetic Substitute, Uncemented, Open Approach (ICD-10-PCS; CPT 27130; principal; 2020-12-15 07:00)
DX: M16.12 Unilateral primary osteoarthritis, left hip (principal); J44.9 Chronic obstructive pulmonary disease, unspecified; E78.5 Hyperlipidemia, unspecified; N18.2 Chronic kidney disease, stage 2 (mild); F41.1 Generalized anxiety disorder; F32.9 Major depressive disorder, single episode, unspecified; K21.9 Gastro-esophageal reflux disease without esophagitis; K74.60 Unspecified cirrhosis of liver; Z86.19 Personal history of other infectious and parasitic diseases; Z87.891 Personal history of nicotine dependence
CPT/HCPCS: 36415; 36416; 72170; 80048; 80053; 81003; 82962; 85025; 88305; 88311; 94640; 96365; 97110; 97116; 97161; 97165; 97530; 97535; C1776; G0378; J0690; J1170; J2704; J3010; J3370; J3490; J3535; J7030; J7611; J7644

== ENCOUNTER → 2020-12-30 10:37 | Outpatient (BNVA) | payer MEDICAID, SELFPAY | PROVIDERS: PCP Family Medicine Adult Medicine; Visit Provider Specialist | DX: Z47.1 Aftercare following joint replacement surgery (principal); Z96.642 Presence of left artificial hip joint | CPT/HCPCS: 73502 ==

== ENCOUNTER → 2021-01-14 15:37 | Outpatient (BNVA) | payer MEDICAID, SELFPAY | PROVIDERS: PCP Family Medicine Adult Medicine; Visit Provider Internal Medicine | DX: K74.60 Unspecified cirrhosis of liver (principal); R63.4 Abnormal weight loss | CPT/HCPCS: 80053; 82105; 82140 ==

== ENCOUNTER 2021-01-27 09:44 | Outpatient (CLI) | payer MEDICAID, SELFPAY ==
--- NOTE | 2021-01-27 10:00 | CT_ITS ---
WS: [id number] CT ABDOMEN PELVIS TECHNIQUE: Contrast-enhanced CT of the abdomen and pelvis with coronal and sagittal reformatted image s. CLINICAL INFORMATION: R/O HCC COMPARISON: CT 3 DLP: 987.[address] scans at [facility] use at least one of these dose optimization techniques: automat ed exposure control; mA and/or kV adjustment per patient size (includes targeted exams where dose is matched to clinical indication); or iterative reconstruction. FINDINGS: Hepatomegaly with cirrhotic capsular contour. Prior cholecystectomy. Evidence of portal venous hypert ension. Mild diffuse fatty infiltration of the liver. Normal portal vein and splenic vein. Normal spl een. Small splenule. Small esophageal hiatal hernia. Lung bases are well aerated. Normal pancreas. Adrenal glands are normal. Normal renal parenchymal enhancement. No hydronephrosis. Tiny right renal cyst. Normal caliber abdominal aorta. Stable prominent left-sided retroperitoneal va rices with anastomotic connection to the left inferior mesenteric venous plexus. No abdominal or pelv ic lymphadenopathy. Prior postoperative changes left DI. Rectal constipation. A few sigmoid diverticuli. No evidence of acute diverticulitis. No evidence of high-grade small or large bowel obstruction. Normal appendix in the right lower quadrant. Tiny fat-containing umbilical hernia. Normal caliber abd ominal aorta with mild aortic calcification. CT/CT abdomen pelvis w con* [id number] IMPRESSION: 1. Cirrhotic liver with slightly progressed capsular nodularity compared to 20 19. Hepatomegaly with diffuse fatty infiltration. 2. No enhancing or suspicious hepatic lesions. 3. Evidence of portal venous hypertension with left retroperitoneal varices an d portosystemic collaterals unchanged from previous 4. Normal spleen. 5. Prior cholecystectomy. 6. No other significant changes from previous.
[2021-01-27] MEDS: iodixanol 320 mg/mL 100mL Btl IV (10:10)
== END 2021-01-27 09:45 | disposition home or self-care (01) ==
LOC: RADWPI 09:47
PROVIDERS: PCP Family Medicine Adult Medicine; Visit Provider Internal Medicine
DX: K74.60 Unspecified cirrhosis of liver (principal); R63.4 Abnormal weight loss; Z90.49 Acquired absence of other specified parts of digestive tract; R16.0 Hepatomegaly, not elsewhere classified; K76.0 Fatty (change of) liver, not elsewhere classified
CPT/HCPCS: 74177; Q9967

== ENCOUNTER → 2021-03-03 13:32 | Outpatient (BNVA) | payer MEDICAID, SELFPAY | PROVIDERS: PCP Family Medicine Adult Medicine; Visit Provider Specialist | DX: Z96.642 Presence of left artificial hip joint (principal) | CPT/HCPCS: 73502 ==

== ENCOUNTER 2021-04-21 07:50 | Emergency (ER) | payer MEDICAID, SELFPAY ==
--- NOTE | 2021-04-21 07:55 | XR_ITS ---
WS: [id number] LEFT RIBS, MULTIPLE VIEWS WITH PA CHEST HISTORY: fall with rib pain COMPARISON: 10/18/2019 Lungs and mediastinum: Hyperinflated lungs. No pneumonia. Benign granuloma at the RIGHT apex. Ribs: No rib fractures or bone destruction identified. Healing rib fracture in the posterior mid RIGHT thorax. XR/XR ribs LT mn 3V w CXR1V [id number] IMPRESSION: No LEFT rib fractures identified.
[2021-04-21 07:59] VITALS: BP 158/105; PULSE 93; RESP 20; TEMP 36.6; O2SAT 97
--- NOTE | 2021-04-21 08:15 | ECG_ITS ---
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 Measurements Intervals [place] Rate: 89 P: 20 AL: 147 QRS: 11 QRSD: 74 T: 64 QT: 353 QTc: 430 Interpretive Statements SINUS RHYTHM NONSPECIFIC T-WAVE ABNORMALITY Compared to ECG 12/08/2020 09:45:28 T-wave abnormality now present First degree AV block no longer present Myocardial infarct finding no longer present Electronically Signed On 04-21-2021 17:36:14 REINSTATEMENT CLERK by Ayaan eCja M.D. [email or web address]
--- NOTE | 2021-04-21 08:27 | W.ED.SOB ---
Documented by User: Mary Quarles PA-C 04/21/21 09:58 HPI - SOB/Dyspnea General: Chief Complaint: Shortness of Breath/Dyspnea Stated Complaint: LEFT RIB PAIN Time Seen by Provider: 04/21/21 07:52 Source: patient Mode of arrival: ambulatory Limitations: no limitations History of Present Illness: HPI Narrative: 60-year-old female presents to the ER today for left rib pain after a fall yesterday afternoon. Patient reports she tripped over a piece of cardboard in her home and hit the edge of her table on her left side. Patient reports left rib pain in addition to bruising on the abdomen, back, and right arm. Patient reports she has been taking ibuprofen for pain with minimal relief. Patient reports a history of COPD and is a prior smoker. She reports shortness of breath but that is more associated with the pain with deep breathing. Patient denies cough or recent illness. Patient denies hitting head or loss of consciousness. MD elicited complaint: shortness of breath and pain with inspiration Pertinent past history: COPD Onset (ago): day(s) Context: trauma/injury Timing: constant Severity: severe Exacerbating factors: movement and coughing Relieving factors: nothing Known history of: COPD Associated symptoms: Deny abdominal pain, chest pain, extremity pain, fever(s), nausea, palpitations or vomiting Review of Systems General: Reports: 10 or more systems reviewed and unremarkable except in HPI and below Const: Denies: fever(s), chills or body aches ENMT: Denies: throat pain, nasal discharge or nasal congestion Card: Denies: chest pain or palpitations Resp: Reports: dyspnea, pain on inspiration and other (Pain with deep breaths and movement); Denies: productive cough or wheezing GI: Denies: abdominal pain, nausea, vomiting, diarrhea or constipation Musc: Reports: back pain (Left ribs mid back); Denies: neck pain, extremity pain, joint pain or joint swelling Skin/Breast: Reports: other (Bruising to the back, abdomen and right arm); Denies: rash or pruritus Neuro: Denies: headache(s) Psych: Denies: anxiety or depression PFS ED PFSH: Medical History Arthritis of left hip CKD (chronic kidney disease) stage 2, GFR 60-89 ml/min COPD (chronic obstructive pulmonary disease) Depression Dyslipidemia ETOH abuse Facet arthropathy, lumbar Generalized anxiety disorder GERD (gastroesophageal reflux disease) Hammer toe History of hepatitis C virus infection Low back pain Oral thrush Osteoarthritis (arthritis due to wear and tear of joints) Osteoarthritis of left hip Screening for cervical cancer Screening for human papillomavirus (HPV) Screening mammogram, encounter for Seizure SOB (shortness of breath) Surgical History History of cholecystectomy History of tonsillectomy History of tonsillectomy and adenoidectomy History of tubal ligation Social History Alcohol intake: current Alcohol intake frequency: holidays/special occasions only Lives independently: Yes Household members: family Marital status: Single Current occupational status: disabled History of recent travel: No Current gender identity: Female Physical Exam Const: COMMON NORMALS: average body habitus and patient oriented x3 GENERAL APPEARANCE: cooperative; not comfortable (pain with any movement or deep breaths) HENMT: COMMON NORMALS: normocephalic, Normal external nose present and moist oral mucous membranes HEAD & SCALP: normocephalic NOSE: Normal external nose present Eye: COMMON NORMALS: conjunctivae normal CONJUNCTIVA: Yes conjunctivae normal Neck/C-Spine: COMMON NORMALS: full ROM Lymph: LYMPHATIC: no lymphadenopathy noted Chest: COMMONS NORMALS: normal inspection of the chest and normal palpation of entire chest wall Resp: COMMON NORMALS: normal respiratory effort AUSCULTATION: crackles, no rales, no rhonchi and no wheezes Cardio: COMMON NORMALS: regular rate and regular rhythm RATE: regular rate RHYTHM: regular rhythm GI: COMMON NORMALS: Normal to inspection, nondistended, normoactive bowel sounds present and non-tender OTHER: A bruise and scabbed lesion are noted to the left anterior abdomen. Patient's abdomen is nontender and wound appears to be healing nicely : COMMON NORMALS: Yes no CVA tenderness BLADDER/KIDNEY EXAM: Yes no CVA tenderness Back/Pelvis: COMMON NORMALS: no CVA tenderness OTHER: Patient has tenderness along the entire left lower ribs. There is bruising noted to the left ribs posteriorly. Extremity: COMMON NORMALS: normal to inspection and full ROM Neuro: COMMON NORMALS: patient oriented x3 and moves all extremities Psych: COMMON NORMALS: mental status grossly normal, Normal thought process present and cooperative THOUGHT PROCESS: Normal thought process present Skin: COMMON NORMALS: no rashes or lesions noted GENERAL SKIN EXAM: no rashes or lesions noted Course ED course: We will get a chest x-ray and rib study this time. We will also get labs given the crackles in the lungs. Patient does have a known history of COPD. Vital Signs: Vital signs: Vital Signs Temperature 97.9 F 04/21/21 07:59 Pulse Rate 93 04/21/21 07:59 Respiratory Rate 20 H 04/21/21 07:59 Blood Pressure 158/105 04/21/21 07:59 Pulse Oximetry 97 04/21/21 07:59 MDM - SOB/Dyspnea MDM Narrative: Medical decision making narrative: 60-year-old female presents to the ER today for left-sided rib pain. Chest x-ray and rib study does not indicate any acute fractures at this time. Patient does have noted bruising from the fall and likely a rib contusion. We will send patient home with hydrocodone for pain. I did discuss this patient with Dr. Soto who agreed with this treatment plan. Discussed with patient the importance of deep breathing and prevention of a secondary infection due to the pain. Patient should follow-up with her PCP in 3 to 5 days. Ice and a topical anti-inflammatory recommended. Topical muscle rub may also help. Return to the ER with any new or worsening symptoms. Lab Data: Attestation: I reviewed the patient's lab results. Labs: Lab Results 04/21/21 04/21/21 09:00 09:00 WBC 8.5 10^3/uL 10^3/ uL (4.0-10.0) RBC 5.11 10^6/uL 10^6 /uL (4.1-5.3) Hgb 15.9 g/dL H g/dL (11.5-15.3) Hct 48.0 % H % (37.0-47.0) MCV 93.9 fl fl (81-99) MCH 31.1 pg pg (28.0-34.0) MCHC 33.1 g/dL g/dL (30.0-36.0) RDW 13.7 % % (12.1-15.1) Plt Count 254 10^3/cmm 10^3 /cmm (130-400) MPV 10.4 fL fL (7.4-10.4) Neut % (Auto) 64.4 % % Lymph % (Auto) 18.9 % % [place] % (Auto) 10.8 % % Eos % (Auto) 4.9 % % Baso % (Auto) 0.6 % % Neut # (Auto) 5.50 10^3/uL 10^3 /uL (1.8-7.7) Lymph # (Auto) 1.6 10^3/uL 10^3/ uL (0.8-4.8) [place] # (Auto) 0.9 10^3/uL 10^3/ uL (0.2-0.9) Eos # (Auto) 0.4 10^3/uL 10^3/ uL (0.0-0.8) Baso # (Auto) 0.1 10^3/uL 10^3/ uL (0.0-0.1) Nucleated RBC % (a uto) 0 % % Nucleated RBCs # 0.0 /100WBC /100W BC Sodium 133 mmol/L L mmol /L (136-145) Potassium 4.0 mmol/L mmol/L (3.5-5.1) Chloride 98 mmol/L mmol/L (98-107) Carbon Dioxide 23 mmol/L mmol/L (22-29) Anion Gap 16.0 (5-19) BUN 12 mg/dL mg/dL (8-23) Creatinine 0.8 mg/dL mg/dL (0.5-0.9) GFR Calculation 72.7 mL/min L mL/ min (90-130) Glucose 100 mg/dL mg/dL (65-115) Calculated Osmolal ity 276 mOsm/kg L mOs m/kg (285-295) Calcium 9.0 mg/dL mg/dL (8.5-10.5) Total Bilirubin 0.8 mg/dL mg/dL (0.15-1.2) AST 23 U/L U/L (0-32) ALT 18 U/L U/L (0-33) Alkaline Phosphata se 127 IU/L H IU/L (35-105) NT-Pro-B Natriuret Pep 92 pg/mL pg/mL (0-125) Total Protein 7.2 g/dL g/dL (6.6-8.7) Albumin 4.0 g/dL g/dL (3.5-5.2) Globulin 3.2 g/dL g/dL (1.3-4.6) Imaging Data^: CXR: Radiologist's impression: [address] [address] XRay Report Signed Patient: Radha Caballero Unit #: [id number] : 1960 Age/Sex: 60 / F ADM Date: 04/21/21 Loc: ER Room/Bed: Attending Dr: Ordering Provider/Ordering MD: Mary Quarles Date of Service: 04/21/21 Procedure(s): XR ribs LT mn 3V w CXR1V 07641 Accession Number(s): [id number] Report Number: [id number] WS: [id number] LEFT RIBS, MULTIPLE VIEWS WITH PA CHEST HISTORY: fall with rib pain COMPARISON: 10/18/2019 Lungs and mediastinum: Hyperinflated lungs. No pneumonia. Benign granuloma at the RIGHT apex. Ribs: No rib fractures or bone destruction identified. Healing rib fracture in the posterior mid RIGHT thorax. XR/XR ribs LT mn 3V w CXR1V [id number] IMPRESSION: No LEFT rib fractures identified. Dictated By: Lulú Dumas DO Signed By: Lulú Dumas DO Signed Date/Time: 04/21/21824 DD/ 3 EKG Data^: EKG 1: Attestation: I personally reviewed and interpreted this EKG as follows: Prior EKG tracings: not available for review Interpretation: Normal sinus rhythm, normal rate, no ST or T wave changes. No prior EKG for review Discharge Plan Discharge Patient Disposition: Home Clinical Impression: Contusion of rib on left side Qualifiers: Encounter type: initial encounter Qualified Code(s): S20.212A - Contusion of left front wall of thorax, initial encounter Condition: Stable Prescriptions: New hydrocodone-acetaminophen 5-325 mg tablet 1 tab PO TID PRN (Reason: pain) Qty: 20 RF: 0 No Action lorazepam [Ativan] 1 mg tablet 2 mg PO DAILY PRN (Reason: Anxiety) RF: 0 duloxetine 30 mg capsule,delayed release(DR/EC) 30 mg PO BID RF: 0 gabapentin 300 mg capsule 600 mg PO BID RF: 0 multivitamin Tablet 1 tab PO DAILY RF: 0 Liver Complex 250-250 mg tablet 1 tab PO DAILY RF: 0 Combivent Respimat 20-100 mcg/actuation mist 1 puff inhalation Q4H Qty: 4 RF: 5 ipratropium-albuterol 0.5 mg-3 mg(2.5 mg base)/3 mL solution for nebulization 3 ml INHALATION QID PRN (Reason: wheezing) Qty: 90 RF: 2 loratadine 10 mg capsule 10 mg PO .once daily 30 Days Qty: 30 RF: 5 Symbicort 160-4.5 mcg/actuation HFA aerosol inhaler See Rx Instructions .ROUTE .COMPLEX Qty: 10.2 RF: 2 meloxicam 15 mg tablet 15 mg PO DAILY Qty: 30 RF: 3 albuterol sulfate [ProAir HFA] 90 mcg/actuation HFA aerosol inhaler 2 puff INHALATION Q6H PRN (Reason: wheezing) 30 Days Qty: 8.5 RF: 2 simvastatin 10 mg tablet See Rx Instructions .ROUTE .COMPLEX 90 Days Qty: 90 RF: 1 sertraline 100 mg tablet See Rx Instructions .ROUTE .COMPLEX 90 Days Qty: 90 RF: 0 Spiriva with HandiHaler 18 mcg capsule, w/inhalation device See Rx Instructions .ROUTE .COMPLEX Qty: 30 RF: 3 spironolactone 25 mg tablet See Rx Instructions .ROUTE .COMPLEX 90 Days Qty: 90 RF: 1 Discharge Orders: Discharge ED (Routine); Ordered 04/21/21 Ordered By: Mary Quarles Referrals: Willie Gipson MD [Primary Care Provider] - Discharge Diet: Usual diet Discharge Activity: Resume usual activity Patient Instructions: Opioid Safety Activity Restrictions/Additional Instructions: Take hydrocodone for pain as prescribed. Continue all other home meds at this time. Deep breathing recommended to prevent secondary infection. Continue anti-inflammatory. Topical muscle rub and anti-inflammatory recommended. Apply ice alternating with heat for comfort. Follow-up with PCP in 3 to 5 days. Return to the ER with any new or worsening symptoms. Coding Level of Care Code ED Corporate Learning Consultant for Chg Fwd Exam Comprehensive Documented by User: Jem Soto MD 04/26/21 22:57 HPI - SOB/Dyspnea General: Chief Complaint: Shortness of Breath/Dyspnea Stated Complaint: LEFT RIB PAIN Time Seen by Provider: 04/21/21 07:52 PFSH ED PFSH: Medical History Arthritis of left hip CKD (chronic kidney disease) stage 2, GFR 60-89 ml/min COPD (chronic obstructive pulmonary disease) Depression Dyslipidemia ETOH abuse Facet arthropathy, lumbar Generalized anxiety disorder GERD (gastroesophageal reflux disease) Hammer toe History of hepatitis C virus infection Low back pain Oral thrush Osteoarthritis (arthritis due to wear and tear of joints) Osteoarthritis of left hip Screening for cervical cancer Screening for human papillomavirus (HPV) Screening mammogram, encounter for Seizure SOB (shortness of breath) Surgical History History of cholecystectomy History of tonsillectomy History of tonsillectomy and adenoidectomy History of tubal ligation Social History Alcohol intake: current Alcohol intake frequency: holidays/special occasions only Lives independently: Yes Household members: family Marital status: Single Current occupational status: disabled History of recent travel: No Current gender identity: Female Course Vital Signs: Vital signs: Vital Signs Temperature 97.9 F 04/21/21 07:59 Pulse Rate 93 04/21/21 07:59 Respiratory Rate 20 H 04/21/21 07:59 Blood Pressure 158/105 04/21/21 07:59 Pulse Oximetry 97 04/21/21 07:59 MDM - SOB/Dyspnea MDM Narrative: Medical decision making narrative: I discussed this case with MONTSERRAT Smith. I have reviewed documentation, labs, imaging. Jem Soto MD Emergency Medicine Lab Data: Labs: Lab Results 04/21/21 04/21/21 09:00 09:00 WBC 8.5 10^3/uL 10^3/ uL (4.0-10.0) RBC 5.11 10^6/uL 10^6 /uL (4.1-5.3) Hgb 15.9 g/dL H g/dL (11.5-15.3) Hct 48.0 % H % (37.0-47.0) MCV 93.9 fl fl (81-99) MCH 31.1 pg pg (28.0-34.0) MCHC 33.1 g/dL g/dL (30.0-36.0) RDW 13.7 % % (12.1-15.1) Plt Count 254 10^3/cmm 10^3 /cmm (130-400) MPV 10.4 fL fL (7.4-10.4) Neut % (Auto) 64.4 % % Lymph % (Auto) 18.9 % % [place] % (Auto) 10.8 % % Eos % (Auto) 4.9 % % Baso % (Auto) 0.6 % % Neut # (Auto) 5.50 10^3/uL 10^3 /uL (1.8-7.7) Lymph # (Auto) 1.6 10^3/uL 10^3/ uL (0.8-4.8) [place] # (Auto) 0.9 10^3/uL 10^3/ uL (0.2-0.9) Eos # (Auto) 0.4 10^3/uL 10^3/ uL (0.0-0.8) Baso # (Auto) 0.1 10^3/uL 10^3/ uL (0.0-0.1) Nucleated RBC % (a uto) 0 % % Nucleated RBCs # 0.0 /100WBC /100W BC Sodium 133 mmol/L L mmol /L (136-145) Potassium 4.0 mmol/L mmol/L (3.5-5.1) Chloride 98 mmol/L mmol/L (98-107) Carbon Dioxide 23 mmol/L mmol/L (22-29) Anion Gap 16.0 (5-19) BUN 12 mg/dL mg/dL (8-23) Creatinine 0.8 mg/dL mg/dL (0.5-0.9) GFR Calculation 72.7 mL/min L mL/ min (90-130) Glucose 100 mg/dL mg/dL (65-115) Calculated Osmolal ity 276 mOsm/kg L mOs m/kg (285-295) Calcium 9.0 mg/dL mg/dL (8.5-10.5) Total Bilirubin 0.8 mg/dL mg/dL (0.15-1.2) AST 23 U/L U/L (0-32) ALT 18 U/L U/L (0-33) Alkaline Phosphata se 127 IU/L H IU/L (35-105) NT-Pro-B Natriuret Pep 92 pg/mL pg/mL (0-125) Total Protein 7.2 g/dL g/dL (6.6-8.7) Albumin 4.0 g/dL g/dL (3.5-5.2) Globulin 3.2 g/dL g/dL (1.3-4.6) Discharge Plan Discharge Patient Disposition: Home Clinical Impression: Contusion of rib on left side Qualifiers: Encounter type: initial encounter Qualified Code(s): S20.212A - Contusion of left front wall of thorax, initial encounter Condition: Stable Prescriptions: New hydrocodone-acetaminophen 5-325 mg tablet 1 tab PO TID PRN (Reason: pain) Qty: 20 RF: 0 No Action lorazepam [Ativan] 1 mg tablet 2 mg PO DAILY PRN (Reason: Anxiety) RF: 0 duloxetine 30 mg capsule,delayed release(DR/EC) 30 mg PO BID RF: 0 gabapentin 300 mg capsule 600 mg PO BID RF: 0 multivitamin Tablet 1 tab PO DAILY RF: 0 Liver Complex 250-250 mg tablet 1 tab PO DAILY RF: 0 Combivent Respimat 20-100 mcg/actuation mist 1 puff inhalation Q4H Qty: 4 RF: 5 ipratropium-albuterol 0.5 mg-3 mg(2.5 mg base)/3 mL solution for nebulization 3 ml INHALATION QID PRN (Reason: wheezing) Qty: 90 RF: 2 loratadine 10 mg capsule 10 mg PO .once daily 30 Days Qty: 30 RF: 5 Symbicort 160-4.5 mcg/actuation HFA aerosol inhaler See Rx Instructions .ROUTE .COMPLEX Qty: 10.2 RF: 2 meloxicam 15 mg tablet 15 mg PO DAILY Qty: 30 RF: 3 albuterol sulfate [ProAir HFA] 90 mcg/actuation HFA aerosol inhaler 2 puff INHALATION Q6H PRN (Reason: wheezing) 30 Days Qty: 8.5 RF: 2 simvastatin 10 mg tablet See Rx Instructions .ROUTE .COMPLEX 90 Days Qty: 90 RF: 1 sertraline 100 mg tablet See Rx Instructions .ROUTE .COMPLEX 90 Days Qty: 90 RF: 0 Spiriva with HandiHaler 18 mcg capsule, w/inhalation device See Rx Instructions .ROUTE .COMPLEX Qty: 30 RF: 3 spironolactone 25 mg tablet See Rx Instructions .ROUTE .COMPLEX 90 Days Qty: 90 RF: 1 Discharge Orders: Discharge ED (Routine); Ordered 04/21/21 Ordered By: Mary Quarles Referrals: Willie Gipson MD [Primary Care Provider] - Discharge Diet: Usual diet Discharge Activity: Resume usual activity Patient Instructions: Opioid Safety Activity Restrictions/Additional Instructions: Take hydrocodone for pain as prescribed. Continue all other home meds at this time. Deep breathing recommended to prevent secondary infection. Continue anti-inflammatory. Topical muscle rub and anti-inflammatory recommended. Apply ice alternating with heat for comfort. Follow-up with PCP in 3 to 5 days. Return to the ER with any new or worsening symptoms. Coding Level of Care Code ED Corporate Learning Consultant for Demetrius Escobedo Exam Comprehensive
[2021-04-21 09:08] LABS: Basophils # 0.1 10^3/uL (0.0-0.1); Basophils % 0.6 %; Eosinophils # 0.4 10^3/uL (0.0-0.8); Eosinophils % 4.9 %; Hemoglobin 15.9 g/dL (11.5-15.3); Lymphocytes # 1.6 10^3/uL (0.8-4.8); Lymphocytes % 18.9 %; Mean Corpuscular HGB Conc 33.1 g/dL (30.0-36.0); Mean Corpuscular Hemoglobin 31.1 pg (28.0-34.0); Mean Corpuscular Volume 93.9 fl (81-99); Mean Platelet Volume 10.4 fL (7.4-10.4); Monocytes # 0.9 10^3/uL (0.2-0.9); Monocytes % 10.8 %; Neutrophils % 64.4 %; Nucleated Red Blood Cells % 0 %; Platelet Count 254 10^3/cmm (130-400); Red Blood Count 5.11 10^6/uL (4.1-5.3); Red Cell Distribution Width 13.7 % (12.1-15.1); White Blood Count 8.5 10^3/uL (4.0-10.0)
[2021-04-21 09:39] LABS: Alanine Aminotransferase 18 U/L (0-33); Alkaline Phosphatase 127 IU/L (35-105); Aspartate Amino Transferase 23 U/L (0-32); Blood Urea Nitrogen 12 mg/dL (8-23); Carbon Dioxide 23 mmol/L (22-29); Chloride 98 mmol/L (98-107); Globulin 3.2 g/dL (1.3-4.6); Glomerular Filtration Rate 72.7 mL/min (90-130); Glucose 100 mg/dL (65-115); NT Pro B Type Natriuretic Pept 92 pg/mL (0-125); Osmolality Calculated 276 mOsm/kg (285-295); Sodium 133 mmol/L (136-145); Total Bilirubin 0.8 mg/dL (0.15-1.2); Total Protein 7.2 g/dL (6.6-8.7)
== END 2021-04-21 10:08 | disposition home or self-care (01) ==
PROVIDERS: Emergency Provider Physician Assistant; PCP Family Medicine Adult Medicine
DX: S20.212A Contusion of left front wall of thorax, initial encounter (principal); W01.190A Fall on same level from slipping, tripping and stumbling with subsequent striking against furniture, initial encounter; Y92.019 Unspecified place in single-family (private) house as the place of occurrence of the external cause; Z87.891 Personal history of nicotine dependence; F41.8 Other specified anxiety disorders; R56.9 Unspecified convulsions; J44.9 Chronic obstructive pulmonary disease, unspecified; Z79.1 Long term (current) use of non-steroidal anti-inflammatories (NSAID); N18.2 Chronic kidney disease, stage 2 (mild)
CPT/HCPCS: 71101; 80053; 83880; 85025; 93005; 99283

== ENCOUNTER 2021-05-12 11:11 | Outpatient (CLI) | payer MEDICAID, SELFPAY ==
[2021-05-12 12:58] LABS: LAB Peripheral Smear Sent for Review
== END 2021-05-12 11:12 | disposition home or self-care (01) ==
LOC: LAB 11:12
PROVIDERS: PCP Family Medicine Adult Medicine; Visit Provider Psychiatry & Neurology Neurology
DX: G25.5 Other chorea (principal)
CPT/HCPCS: 80500; 81271

== ENCOUNTER → 2021-08-25 14:02 | Outpatient (BNVA) | payer MEDICAID, SELFPAY | PROVIDERS: PCP Family Medicine Adult Medicine; Visit Provider Specialist | DX: Z96.642 Presence of left artificial hip joint (principal) | CPT/HCPCS: 73502 ==

== ENCOUNTER 2021-09-30 11:35 | Outpatient (CLI) | payer MEDICAID, SELFPAY ==
--- NOTE | 2021-09-30 11:45 | MR_ITS ---
WS: [id number] MRI RIGHT HIP without CONTRAST. COMPARISON: Prior images of the pelvis 11/18/2020. Multiplanar, multisequence imaging is performed without contrast. No fracture or marrow edema involving the RIGHT hip. There is a very small amount of increased fluid in the RIGHT hip joint. Mild narrowing of the hip joint with a small acetabular osteophyte. No muscle edema. No muscle atrophy. Prior LEFT hip replacement with significant artifact from the metal obscuring portions of the LEFT pe lvis. MR/MR hip RT wo con* [id number] IMPRESSION: 1. No marrow edema or fracture RIGHT hip. 2. Very mild RIGHT hip joint osteoarthritis. 3. Minimal increased fluid in the RIGHT hip joint. May be reactive.
== END 2021-09-30 11:36 | disposition home or self-care (01) ==
LOC: RAD 11:41
PROVIDERS: PCP Family Medicine Adult Medicine; Visit Provider Specialist
DX: M16.11 Unilateral primary osteoarthritis, right hip (principal); M25.551 Pain in right hip
CPT/HCPCS: 73721

== ENCOUNTER → 2021-10-21 11:24 | Outpatient (BNVA) | payer MEDICAID, SELFPAY | PROVIDERS: PCP Family Medicine Adult Medicine; Visit Provider Registered Nurse Neonatal Intensive Care | DX: J02.0 Streptococcal pharyngitis (principal) | CPT/HCPCS: 87880 ==

== ENCOUNTER → 2021-11-18 08:40 | Outpatient (BNVA) | payer MEDICAID, SELFPAY | PROVIDERS: PCP Family Medicine Adult Medicine; Visit Provider Specialist | DX: M25.551 Pain in right hip (principal); M25.511 Pain in right shoulder | CPT/HCPCS: 99213 ==

== ENCOUNTER 2021-11-26 13:00 | Emergency (ER) | payer MEDICAID, SELFPAY ==
[2021-11-26 13:26] LABS: Basophils # 0.1 10^3/uL (0.0-0.1); Basophils % 0.5 %; Eosinophils # 0.4 10^3/uL (0.0-0.8); Eosinophils % 3.1 %; Hematocrit 45.2 % (37.0-47.0); Lymphocytes # 2.2 10^3/uL (0.8-4.8); Lymphocytes % 15.9 %; Mean Corpuscular HGB Conc 35.4 g/dL (30.0-36.0); Mean Corpuscular Hemoglobin 31.4 pg (28.0-34.0); Mean Corpuscular Volume 88.6 fl (81-99); Mean Platelet Volume 10.6 fL (7.4-10.4); Monocytes # 1.1 10^3/uL (0.2-0.9); Monocytes % 8.1 %; Neutrophils # 9.76 10^3/uL (1.8-7.7); Nucleated Red Blood Cells % 0 %; Platelet Count 252 10^3/cmm (130-400); Red Cell Distribution Width 12.7 % (12.1-15.1); White Blood Count 13.6 10^3/uL (4.0-10.0)
[2021-11-26 13:33] LABS: Add Urine Microscopic? NO; Charge for UA Resulting for Rev
[2021-11-26 13:35] LABS: Bilirubin Urine Neg (Negative); Blood Urine Neg (Negative); Glucose Urine UA Norm (Normal); Ketones Urine Negative (Negative); Leukocyte Esterase Urine Negative (Negative); Nitrate Urine Negative (Negative); Protein Urine Neg (Negative); Urine Appearance Clear (CLEAR); Urine Color Yellow (Yellow); Urobilinogen Urine Norm (Negative); pH Urine 7 (5-7)
[2021-11-26 13:39] VITALS: BP 179/107; PULSE 94; RESP 15; TEMP 36.8; O2SAT 97; BMI 24.2
[2021-11-26 14:43] LABS: Alanine Aminotransferase 25 U/L (0-33); Alkaline Phosphatase 132 IU/L (35-105); Aspartate Amino Transferase 29 U/L (0-32); Blood Urea Nitrogen 10 mg/dL (8-23); Calcium 9.3 mg/dL (8.5-10.5); Carbon Dioxide 18 mmol/L (22-29); Chloride 98 mmol/L (98-107); Globulin 3.6 g/dL (1.3-4.6); Glomerular Filtration Rate 72.4 mL/min (90-130); Glucose 108 mg/dL (65-115); Lipase 22 U/L (13-60); Osmolality Calculated 278 mOsm/kg (285-295); Sodium 134 mmol/L (136-145); Total Bilirubin 0.8 mg/dL (0.15-1.2); Total Protein 7.6 g/dL (6.6-8.7)
[2021-11-26 14:50] LABS: Anion Gap 21.8 (5-19); Potassium 3.8 mmol/L (3.5-5.1)
--- NOTE | 2021-11-26 15:38 | CTR_ITS ---
PROCEDURE INFORMATION: Exam: CT Abdomen And Pelvis With Contrast Exam date and time: 11/26/2021 6:02 PM Age: 61 years old Clinical indication: Abdominal pain; Generalized; Additional info: Abd pain TECHNIQUE: Imaging protocol: Computed tomography of the abdomen and pelvis with contrast. Radiation optimization: All CT scans at this facility use at least one of these dose optimization techniques: automated exposure control; mA and/or kV adjustment per patient size (includes targeted exams where dose is matched to clinical indication); or iterative reconstruction. Contrast material: OMNI 300; Contrast volume: 90 ml; Contrast route: INTRAVENOUS (IV); COMPARISON: CT abdomen pelvis w con* [id number] 01/27/2021 10:09 AM RADIATION DOSE METRICS: Total DLP (mGy-cm): 1337.9 FINDINGS: Liver: Nodular changes of liver contour. No focal liver mass. Gallbladder and bile ducts: Cholecystectomy. Mildly dilated common bile duct which is nonspecific after cholecystectomy. Pancreas: Normal. No ductal dilation. Spleen: Normal. No splenomegaly. Adrenal glands: Normal. No mass. Kidneys and ureters: Normal. No hydronephrosis. Stomach and bowel: Diverticulosis coli. No inflammatory bowel wall thickening. Negative for bowel obstruction. Negative for bowel perforation. Appendix: No evidence of appendicitis. Intraperitoneal space: Unremarkable. No free air. No significant fluid collection. 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 Unremarkable IVC. Plaques of abdominal aorta without aneurysm. Lymph nodes: Unremarkable. No enlarged lymph nodes. Urinary bladder: Unremarkable as visualized. Reproductive: Unremarkable as visualized. Bones/joints: Unremarkable left hip arthroplasty alignment. No fractures. Moderate to severe L4-L5 and L5-S1 disc disease. Soft tissues: Unremarkable. CT/CT abdomen pelvis w con* [id number] IMPRESSION: 1. Negative for acute abdominopelvic abnormality. 2. Liver cirrhosis suspected.
--- NOTE | 2021-11-26 17:27 | ECG_ITS ---
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 Measurements Intervals [place] Rate: 102 P: 80 TX: 191 QRS: -46 QRSD: 86 T: 73 QT: 354 QTc: 463 Interpretive Statements SINUS TACHYCARDIA WITH OCCASIONAL SUPRAVENTRICULAR PREMATURE COMPLEXES LOW QRS VOLTAGE IN PRECORDIAL LEADS [QRS DEFLECTION < 1.0 mV IN CHEST LEADS] LEFT ANTERIOR FASCICULAR BLOCK [QRS AXIS <= -45, QR IN I, RS IN II] INFERIOR MYOCARDIAL INFARCTION , OF INDETERMINATE AGE [40+ ms Q WAVE AND/OR ST/T ABNORMALITY IN II/aVF] WARNING: DATA QUALITY MAY AFFECT INTERPRETATION Compared to ECG 04/21/2021 08:18:10 Low QRS voltage now present Left anterior fascicular block now present Myocardial infarct finding now present Sinus rhythm no longer present T-wave abnormality no longer present Electronically Signed On 11-27-2021 12:23:03 CDT by Sreedhar Cardoza M.D. [id number]
--- NOTE | 2021-11-26 17:29 | ED_ITS ---
Documented by User: Rashawn Odell DO 11/29/21 08:41 HPI - Abdominal Pain General: Chief Complaint: Abdominal Pain Stated Complaint: abd pain Time Seen by Provider: 11/26/21 15:36 Source: patient Mode of arrival: ambulatory Limitations: no limitations History of Present Illness: 61-year-old female presents with abdominal pain. Patient reports pain 8 out of 10. He has had normal bowel movements and appetite up until this began earlier today. She denies any medication on hematemesis cough cramps no dysuria urgency or frequency or fever. MD elicited complaint: abdominal pain Onset (ago): hour(s) Pain Consistency: constant Location: Epigastric Severity: moderate Quality: cramping Radiation: none Migration to: no migration Exacerbating factors: eating Relieving factors: nothing Associated Symptoms: Reports bloating, heartburn, nausea and poor appetite; Denies anorexia, belching, change in bowel habits, change in stool character, chills, coffee ground emesis, constipation, GI cramping, diarrhea, dyspepsia, dysuria, excessive flatus, fever(s), hematochezia, hematuria, hematemesis, fecal incontinence, loose stools, melena and vomiting Review of Systems Const: Denies: fever(s) or chills ENMT: Denies: throat pain, ear or mastoid pain, nasal discharge or nasal congestion Card: Denies: chest pain, edema, dyspnea on exertion or orthopnea Resp: Denies: dyspnea, productive cough or non-productive cough GI: Reports: nausea, heartburn and bloating; Denies: vomiting, hematemesis, coffee ground emesis, diarrhea, constipation, GI cramping, belching, excessive flatus, fecal incontinence, change in bowel habits, change in stool character, hematochezia or melena : Denies: dysuria or hematuria Skin/Breast: Denies: rash or pruritus PFSH ED PFSH: Medical History (Updated 11/26/21 @ 19:43 by Dao Gonzales DO) Arthritis of left hip CFS (chronic fatigue syndrome) CKD (chronic kidney disease) stage 2, GFR 60-89 ml/min COPD (chronic obstructive pulmonary disease) Depression Dyslipidemia ETOH abuse Facet arthropathy, lumbar Generalized anxiety disorder GERD (gastroesophageal reflux disease) Hammer toe History of hepatitis C virus infection Left anterior shoulder pain Low back pain Oral thrush Osteoarthritis (arthritis due to wear and tear of joints) Osteoarthritis of left hip Screening for cervical cancer Screening for human papillomavirus (HPV) Screening mammogram, encounter for Seizure SOB (shortness of breath) Surgical History (Updated 11/23/21 @ 13:00 by Willie Gipson MD) H/O total hip arthroplasty Dr. Leal 12/15/2020 Left total Hip replacement History of cholecystectomy History of tonsillectomy History of tonsillectomy and adenoidectomy History of tubal ligation Social History Smoking and tobacco status: former smoker Alcohol intake: current Alcohol intake frequency: holidays/special occasions only Lives independently: Yes Household members: family Marital status: Single Current occupational status: disabled History of recent travel: No Current gender identity: Female Physical Exam Const: GENERAL APPEARANCE: cooperative and comfortable ORIENTATION/CONSCIOUSNESS: Yes awake, Yes oriented to person, Yes oriented to place and Yes oriented to time HENMT: COMMON NORMALS: normocephalic and atraumatic HEAD & SCALP: normocephalic and atraumatic Neck/C-Spine: COMMON NORMALS: no JVD Resp: COMMON NORMALS: normal respiratory effort, No retractions, No use of accessory muscles and clear to auscultation bilaterally AUSCULTATION: clear to auscultation bilaterally Cardio: COMMON NORMALS: no JVD, regular rate, regular rhythm and No murmurs present (Cardio) RATE: regular rate RHYTHM: regular rhythm GI: COMMON NORMALS: No hepatosplenomegaly present AUSCULTATION: Yes normoactive bowel sounds PALPATION: Yes Tenderness to palpation present (GI), No Guarding due to palpation present (GI) and Yes No hepatosplenomegaly present : COMMON NORMALS: No no CVA tenderness BLADDER/KIDNEY EXAM: No no CVA tenderness Back/Pelvis: COMMON NORMALS: negative for no CVA tenderness Extremity: COMMON NORMALS: normal to inspection, capillary refill normal, no clubbing, cyanosis or edema, no calf tenderness and no pedal edema Neuro: SENSORIUM/ORIENTATION: Yes oriented to person, Yes oriented to place and Yes oriented to time Skin: COMMON NORMALS: no rashes or lesions noted GENERAL SKIN EXAM: no rashes or lesions noted Course Vital Signs: Vital signs: Vital Signs Temperature 98.1 F 11/26/21 20:29 Pulse Rate 94 11/26/21 20:29 Respiratory Rate 18 11/26/21 20:29 Blood Pressure 110/81 11/26/21 20:29 Pulse Oximetry 97 11/26/21 20:29 MDM - Abdominal Pain Medical Decision Making Care signed out to Dr. Gonzales at change of shift. See final notes for diagnosis and disposition. Patient notes that she received a prescription for pantoprazole earlier today, and took 1 without much improvement. It was explained to her that this takes several days to improve any symptoms. She has a leukocytosis of 13, hemoglobin of 16. Bicarbonate of 18. She is given some fluid here. Her CT scan is negative for acute abdominal pelvic abnormality. She may have a small ulcer. We will try GI cocktail here, and allow her home with Carafate to go with her pantoprazole Medical Records I reviewed the patient's medical records. Lab Data I reviewed the patient's lab results. : 11/26/21 13:21 11/26/21 13:21 Labs/Radiology: Radiology Impressions Abdomen/Pelvis CT 11/26/21 15:38 IMPRESSION: 1. Negative for acute abdominopelvic abnormality. 2. Liver cirrhosis suspected. Laboratory Results WBC 13.6 10^3/uL (4.0-10.0) H 11/26/21 13:21 RBC 5.10 10^6/uL (4.1-5.3) 11/26/21 13:21 Hgb 16.0 g/dL (11.5-15.3) H 11/26/21 13:21 Hct 45.2 % (37.0-47.0) 11/26/21 13:21 MCV 88.6 fl (81-99) 11/26/21 13:21 MCH 31.4 pg (28.0-34.0) 11/26/21 13:21 MCHC 35.4 g/dL (30.0-36.0) 11/26/21 13:21 RDW 12.7 % (12.1-15.1) 11/26/21 13:21 Plt Count 252 10^3/cmm (130-400) 11/26/21 13:21 MPV 10.6 fL (7.4-10.4) H 11/26/21 13:21 Neut % (Auto) 72.0 % 11/26/21 13:21 Lymph % (Auto) 15.9 % 11/26/21 13:21 [place] % (Auto) 8.1 % 11/26/21 13:21 Eos % (Auto) 3.1 % 11/26/21 13:21 Baso % (Auto) 0.5 % 11/26/21 13:21 Neut # (Auto) 9.76 10^3/uL (1.8-7.7) H 11/26/21 13:21 Lymph # (Auto) 2.2 10^3/uL (0.8-4.8) 11/26/21 13:21 [place] # (Auto) 1.1 10^3/uL (0.2-0.9) H 11/26/21 13:21 Eos # (Auto) 0.4 10^3/uL (0.0-0.8) 11/26/21 13:21 Baso # (Auto) 0.1 10^3/uL (0.0-0.1) 11/26/21 13:21 Nucleated RBC % (auto) 0 % 11/26/21 13:21 Nucleated RBCs # 0.0 /100WBC 11/26/21 13:21 Sodium 134 mmol/L (136-145) L 11/26/21 13:21 Potassium 3.8 mmol/L (3.5-5.1) 11/26/21 13:21 Chloride 98 mmol/L (98-107) 11/26/21 13:21 Carbon Dioxide 18 mmol/L (22-29) L 11/26/21 13:21 Anion Gap 21.8 (5-19) H 11/26/21 13:21 BUN 10 mg/dL (8-23) 11/26/21 13:21 Creatinine 0.8 mg/dL (0.5-0.9) 11/26/21 13:21 GFR Calculation 72.4 mL/min (90-130) L 11/26/21 13:21 Glucose 108 mg/dL (65-115) 11/26/21 13:21 Calculated Osmolality 278 mOsm/kg (285-295) L 11/26/21 13:21 Calcium 9.3 mg/dL (8.5-10.5) 11/26/21 13:21 Total Bilirubin 0.8 mg/dL (0.15-1.2) 11/26/21 13:21 AST 29 U/L (0-32) 11/26/21 13:21 ALT 25 U/L (0-33) 11/26/21 13:21 Alkaline Phosphatase 132 IU/L (35-105) H 11/26/21 13:21 Total Protein 7.6 g/dL (6.6-8.7) 11/26/21 13:21 Albumin 4.0 g/dL (3.5-5.2) 11/26/21 13:21 Globulin 3.6 g/dL (1.3-4.6) 11/26/21 13:21 Lipase 22 U/L (13-60) 11/26/21 13:21 Urine Color Yellow (Yellow) 11/26/21 13:24 Urine Appearance Clear (CLEAR) 11/26/21 13:24 Urine pH 7 (5-7) 11/26/21 13:24 Ur Specific [place] 1.000 (1.005-1.030) L 11/26/21 13:24 Urine Protein Neg (Negative) 11/26/21 13:24 Urine Glucose (UA) Norm (Normal) 11/26/21 13:24 Urine Ketones Negative (Negative) 11/26/21 13:24 Urine Blood Neg (Negative) 11/26/21 13:24 Urine Nitrate Negative (Negative) 11/26/21 13:24 Urine Bilirubin Neg (Negative) 11/26/21 13:24 Urine Urobilinogen Norm mg/dL (Negative) 11/26/21 13:24 Ur Leukocyte Esterase Negative (Negative) 11/26/21 13:24 Discharge Plan Discharge Patient Disposition: Home Clinical Impression: Gastritis Condition: Stable Prescriptions: New Carafate 1 gram tablet 1 g PO TID 28 Days Qty: 84 0RF hydrocodone-acetaminophen 5-325 mg tablet 1 tab PO Q8H PRN (Reason: pain) Qty: 7 0RF ondansetron 4 mg film 4 mg PO DAILY PRN (Reason: nausea and vomiting) Qty: 10 0RF No Action lorazepam [Ativan] 1 mg tablet 2 mg PO DAILY PRN (Reason: Anxiety) 0RF multivitamin Tablet 1 tab PO DAILY 0RF aripiprazole [Abilify] 15 mg tablet 15 mg PO DAILY 0RF duloxetine 60 mg capsule,delayed release(DR/EC) 60 mg PO DAILY 0RF gabapentin 600 mg tablet 600 mg PO TID Qty: 90 3RF pantoprazole 40 mg tablet,delayed release (DR/EC) 40 mg PO DAILY Qty: 60 1RF ipratropium-albuterol 0.5 mg-3 mg(2.5 mg base)/3 mL solution for nebulization 3 ml INHALATION QID PRN (Reason: wheezing) Qty: 90 2RF simvastatin 10 mg tablet See Rx Instructions .ROUTE .COMPLEX Qty: 30 5RF Dose Instruction: TAKE 1 TABLET BY MOUTH EVERY DAY Rx Instructions: TAKE 1 TABLET BY MOUTH EVERY DAY Combivent Respimat 20-100 mcg/actuation mist See Rx Instructions .ROUTE .COMPLEX Qty: 4 5RF Dose Instruction: INHALE 1 PUFF BY MOUTH EVERY 4 HOURS FOR SHORTNESS OF BREATH OR WHEEZING Rx Instructions: INHALE 1 PUFF BY MOUTH EVERY 4 HOURS FOR SHORTNESS OF BREATH OR WHEEZING spironolactone 25 mg tablet See Rx Instructions .ROUTE .COMPLEX Qty: 30 5RF Dose Instruction: TAKE 1 TABLET BY MOUTH EVERY DAY Rx Instructions: TAKE 1 TABLET BY MOUTH EVERY DAY Spiriva with HandiHaler 18 mcg capsule, w/inhalation device See Rx Instructions .ROUTE .COMPLEX Qty: 30 3RF Dose Instruction: INHALE 1 CAPSULE VIA HANDIHALER EVERY DAY Rx Instructions: INHALE 1 CAPSULE VIA HANDIHALER EVERY DAY Symbicort 160-4.5 mcg/actuation HFA aerosol inhaler See Rx Instructions .ROUTE .COMPLEX Qty: 10.2 3RF Dose Instruction: TAKE 2 PUFFS BY MOUTH TWICE A DAY Rx Instructions: TAKE 2 PUFFS BY MOUTH TWICE A DAY albuterol sulfate [ProAir HFA] 90 mcg/actuation HFA aerosol inhaler See Rx Instructions .ROUTE .COMPLEX Qty: 8.5 5RF Dose Instruction: INHALE 2 PUFFS BY MOUTH EVERY 6 HOURS NEEDED FOR WHEEZING FOR 30 DAYS Rx Instructions: INHALE 2 PUFFS BY MOUTH EVERY 6 HOURS NEEDED FOR WHEEZING FOR 30 DAYS Discharge Orders: Discharge ED (Routine); Ordered 11/26/21 Ordered By: Dao Gonzales Referrals: Willie Gipson MD [Primary Care Provider] - 4-7 days Patient Instructions: Gastritis (ED), Opioid Safety Activity Restrictions/Additional Instructions: Keep taking the pantoprazole you were prescribed. Add the sucralfate to it, taking it 30 minutes before meals. Pain medication for severe pain. Return for any worsening belly pain despite treatment, vomiting liquids or medications, blood in the stool, fever greater than 100, other concerning symptoms. Coding Level of Care Code ED Optical Glass Silverer for Chg Fwd Exam Comprehensive Documented by User: Dao Gonzales DO 11/29/21 13:23 HPI - Abdominal Pain General: Chief Complaint: Abdominal Pain Stated Complaint: abd pain Time Seen by Provider: 11/26/21 15:36 History of Present Illness: 61-year-old female presents with abdominal pain. [facility] ED PFSH: Medical History (Updated 11/26/21 @ 19:43 by Dao Gonzales DO) Arthritis of left hip CFS (chronic fatigue syndrome) CKD (chronic kidney disease) stage 2, GFR 60-89 ml/min COPD (chronic obstructive pulmonary disease) Depression Dyslipidemia ETOH abuse Facet arthropathy, lumbar Generalized anxiety disorder GERD (gastroesophageal reflux disease) Hammer toe History of hepatitis C virus infection Left anterior shoulder pain Low back pain Oral thrush Osteoarthritis (arthritis due to wear and tear of joints) Osteoarthritis of left hip Screening for cervical cancer Screening for human papillomavirus (HPV) Screening mammogram, encounter for Seizure SOB (shortness of breath) Surgical History (Updated 11/23/21 @ 13:00 by Willie Gipson MD) H/O total hip arthroplasty Dr. Leal 12/15/2020 Left total Hip replacement History of cholecystectomy History of tonsillectomy History of tonsillectomy and adenoidectomy History of tubal ligation Social History Smoking and tobacco status: former smoker Alcohol intake: current Alcohol intake frequency: holidays/special occasions only Lives independently: Yes Household members: family Marital status: Single Current occupational status: disabled History of recent travel: No Current gender identity: Female Course Vital Signs: Vital signs: Vital Signs Temperature 98.1 F 11/26/21 20:29 Pulse Rate 94 11/26/21 20:29 Respiratory Rate 18 11/26/21 20:29 Blood Pressure 110/81 11/26/21 20:29 Pulse Oximetry 97 11/26/21 20:29 MDM - Abdominal Pain Medical Decision Making Patient notes that she received a prescription for pantoprazole earlier today, and took 1 without much improvement. It was explained to her that this takes several days to improve any symptoms. She has a leukocytosis of 13, hemoglobin of 16. Bicarbonate of 18. She is given some fluid here. Her CT scan is negative for acute abdominal pelvic abnormality. She may have a small ulcer. We will try GI cocktail here, and allow her home with Carafate to go with her pantoprazole Lab Data : 11/26/21 13:21 11/26/21 13:21 Labs/Radiology: Radiology Impressions Abdomen/Pelvis CT 11/26/21 15:38
[2021-11-26] MEDS: sodium chloride 0.9% 1,000 ML 999 ML IV ×2 (17:37→18:56)
[2021-11-26 17:38] VITALS: RESP 16; O2SAT 96
[2021-11-26] MEDS: morphine 4 mg/mL SDV 1 mL IVP ×2 (17:38→18:53)
[2021-11-26] MEDS: ondansetron 2 mg/ML SDV 2 mL 4 MG IVP (17:38)
[2021-11-26] MEDS: iohexol 350 mg/mL 100 mL Btl IV (18:13)
[2021-11-26 18:17] VITALS: BP 121/76; PULSE 108; RESP 14; O2SAT 96
[2021-11-26 18:53] VITALS: RESP 18; O2SAT 95
[2021-11-26 19:31] VITALS: BP 103/70; PULSE 99; RESP 18; O2SAT 98
[2021-11-26] MEDS: lidocaine 2% viscous 15 ML, aluminum-mag hydrox-simethicon 30 ML, sucralfate oral liq 1 GM PO (19:57)
[2021-11-26 20:29] VITALS: BP 110/81; PULSE 94; RESP 18; TEMP 36.7; O2SAT 97
== END 2021-11-26 20:31 | disposition home or self-care (01) ==
PROVIDERS: Family Medicine; Emergency Provider Emergency Medicine; PCP Family Medicine Adult Medicine
DX: K29.70 Gastritis, unspecified, without bleeding (principal); N18.2 Chronic kidney disease, stage 2 (mild); J44.9 Chronic obstructive pulmonary disease, unspecified; E78.5 Hyperlipidemia, unspecified; Z86.19 Personal history of other infectious and parasitic diseases; Z87.891 Personal history of nicotine dependence
CPT/HCPCS: 74177; 80053; 81003; 83690; 85025; 93005; 96361; 96374; 96375; 96376; 99284; J2270; J2405; J7030; Q9967

== ENCOUNTER → 2021-12-08 13:43 | Outpatient (BNVA) | payer MEDICAID, SELFPAY | PROVIDERS: PCP Family Medicine Adult Medicine; Visit Provider Specialist | DX: M67.912 Unspecified disorder of synovium and tendon, left shoulder (principal); M25.512 Pain in left shoulder | CPT/HCPCS: 73030; 99214 ==

== ENCOUNTER 2022-01-06 10:04 | Outpatient (CLI) | payer MEDICAID, SELFPAY ==
--- NOTE | 2022-01-06 10:13 | MM_ITS ---
WS: [id number] BILATERAL SCREENING DIGITAL TOMOSYNTHESIS MAMMOGRAM WITH CAD HISTORY: SCREENING COMPARISON: 12/10/2020, 05/30/2017 and 07/16/2019 Bilateral CC and MLO views with tomosynthesis and synthetic mammography submitted. Computer aided det ection analyzed. Breast composition: There are scattered areas of fibroglandular density. No suspicious masses, microc alcifications or architectural distortion. Benign bilateral breast arterial calcifications. MM/[place] [id number] IMPRESSION: BI-RADS: 2-Benign FOLLOW UP: 1 Year Follow-up
== END 2022-01-06 10:05 | disposition home or self-care (01) ==
LOC: RAD 10:05
PROVIDERS: PCP Family Medicine Adult Medicine; Visit Provider Family Medicine Adult Medicine
DX: Z12.31 Encounter for screening mammogram for malignant neoplasm of breast (principal)
CPT/HCPCS: 77063; 77067

== ENCOUNTER 2022-01-18 09:13 | Outpatient (CLI) | payer MEDICAID, SELFPAY ==
--- NOTE | 2022-01-18 09:30 | MR_ITS ---
WS: [id number] MRI LEFT SHOULDER HISTORY: chronic left shoulder pain COMPARISON: Radiograph 12/08/2021. TECHNIQUE: Multiplanar sequences of the shoulder joint are submitted. Moderate AC joint arthritis. Joint space narrowing with hypertrophic soft tissue and bone. Distal cla vicular osteophyte causing deformity and encroachment upon the myotendinous insertion of the supraspi natus. Small amount of fluid in the subdeltoid bursa. Mild subacromial encroachment upon the supraspi natus. Biceps tendon is not identified in the bicipital groove. No os acromion. Mild narrowing of the glenohumeral joint with high riding humeral head. 5 mm insertion site tear of t he supraspinatus tendon. Moderate tendinopathy in the distal 3 to 4 cm of the supraspinatus tendon. N o muscle atrophy or edema. Increased signal in the anterior superior labrum. Normal middle glenohumer al ligament. MR/MR shoulder LT wo con* [id number] IMPRESSION: 1. Empty bicipital groove. Torn or subluxed biceps tendon. 2. Moderate AC joint arthritis with AC joint osteophytes encroaching upon the myotendinous insertion supraspinatus muscle. 3. Very small supraspinatus tendon insertion site tear without retraction or m uscle atrophy. 4. Supraspinatus tendinopathy in the distal 3 to 4 cm. 5. Abnormal signal in the anterior superior labrum, suspect tears or significa nt intrasubstance degeneration.
== END 2022-01-18 09:14 | disposition home or self-care (01) ==
LOC: RAD 09:14
PROVIDERS: PCP Family Medicine Adult Medicine; Visit Provider Family Medicine Adult Medicine
DX: M13.812 Other specified arthritis, left shoulder (principal); M75.102 Unspecified rotator cuff tear or rupture of left shoulder, not specified as traumatic
CPT/HCPCS: 73221

== ENCOUNTER → 2022-02-16 13:55 | Outpatient (BNVA) | payer MEDICAID, SELFPAY | PROVIDERS: PCP Family Medicine Adult Medicine; Visit Provider Specialist | DX: G89.29 Other chronic pain (principal); M25.512 Pain in left shoulder | CPT/HCPCS: 20610; 99213; 99214; J1100; J2795; J3301 ==

== ENCOUNTER 2022-03-01 07:24 | Outpatient (CLI) | payer MEDICAID, SELFPAY ==
--- NOTE | 2022-03-01 07:35 | CT_ITS ---
WS: [id number] LDCT LUNG CANCER SCREENING HISTORY: annual with last 2019 TECHNIQUE: Axial imaging performed from the apices to 1 cm below the costophrenic angles. Coronal and sagittal reformats are submitted with axial MIP series. All CT scans at [facility] use at least one of these dose optimization techniques: automated exposure control; mA and/or kV adjustment per patient size (includes targeted exams where dose is matched to clinical indication); or iterativ e reconstruction. DLP: 78.79 mGy.cm DIvol: Mean CTDIvol: 1.60 (mGy) COMPARISON: 02/06/2020 Diagnostic quality: Satisfactory Lung Nodules: There are a few benign granuloma. No suspicious mass or nodule. No endobronchial lesion s. Small amount of mucus in the RIGHT lower lobe and middle lobe bronchi. Lungs: Chronic emphysema. Heart: Normal size heart. No pericardial effusion. Other findings: Minimal atherosclerosis aorta. No adenopathy. Cirrhotic liver. Prior cholecystectomy. Moderate thoracic spine spondylosis. CT/CT lung screening [id number] IMPRESSION: LUNG-RADS: 2-Benign Appearance or Behavior FOLLOW UP: 12 Month: Continue annual screening with LDCT OTHER FINDINGS (S MODIFIER): None.
--- NOTE | 2022-03-01 07:45 | CT_ITS ---
WS: [id number] CT ABDOMEN WITHOUT CONTRAST HISTORY: Cirrhosis, Hx Ethanol use Contiguous single phase 5 mm axial imaging performed to the abdomen. Oral contrast has been provided. Coronal and sagittal reformats are submitted. [facility] CT [facility] at [facility] use at least one of these dose optimization techniques: automated exposure control; mA and/or kV adjustment per patient size (includes targeted exams where dose is matched to clinical indication); or iterative reconstruct ion. CONTRAST: None DLP: 539.54 mGy.cm COMPARISON: 11/26/2021 Lower thorax: Lung bases are hyperinflated. No pneumonia. No mass. Small hiatal hernia. Liver: Small liver with moderate lobular surface from cirrhosis. Caudate and LEFT lobe are slightly p rominent. This study is not adequate to exclude hepatoma or mass. Gallbladder: Prior cholecystectomy. Pancreas: Unremarkable noncontrast exam. Spleen: Normal. Adrenals: Normal. Right kidney: Normal. Left kidney: Normal. Aorta: Mild atherosclerosis. GI tract: Nondistended stomach. No small bowel obstruction. Visualized colon is negative other than c onstipation. No adenopathy or free fluid. Abdominal wall: No hernia. Visualized osseous structures: No destructive bone lesions. CT/CT abdomen wo con [id number] IMPRESSION: 1. Cirrhotic configuration of the liver. Without IV contrast hepatic mass such as hepatoma or portal vein thrombosis cannot be excluded. 2. Prior cholecystectomy. 3. Mild constipation within the visualized colon.
== END 2022-03-01 07:25 | disposition home or self-care (01) ==
PROVIDERS: PCP Family Medicine Adult Medicine; Visit Provider Family Medicine Adult Medicine
DX: K74.60 Unspecified cirrhosis of liver (principal); Z12.2 Encounter for screening for malignant neoplasm of respiratory organs; J44.9 Chronic obstructive pulmonary disease, unspecified; Z87.891 Personal history of nicotine dependence
CPT/HCPCS: 71271; 74150

== ENCOUNTER → 2022-03-22 10:49 | Outpatient (BNVA) | payer MEDICAID, SELFPAY | PROVIDERS: PCP Family Medicine Adult Medicine; Visit Provider Family Medicine Adult Medicine | DX: E78.5 Hyperlipidemia, unspecified (principal); J44.9 Chronic obstructive pulmonary disease, unspecified; N18.2 Chronic kidney disease, stage 2 (mild); M25.512 Pain in left shoulder; Z23 Encounter for immunization; G89.29 Other chronic pain; R53.82 Chronic fatigue, unspecified; Z87.891 Personal history of nicotine dependence; M51.36 Other intervertebral disc degeneration, lumbar region; K21.9 Gastro-esophageal reflux disease without esophagitis; M19.90 Unspecified osteoarthritis, unspecified site; R70.0 Elevated erythrocyte sedimentation rate | CPT/HCPCS: 80053; 80061; 85025; 85651; 86431 ==

== ENCOUNTER → 2022-04-01 09:56 | Outpatient (BNVA) | payer MEDICAID, SELFPAY | PROVIDERS: PCP Family Medicine Adult Medicine; Visit Provider Family Medicine Adult Medicine | DX: R70.0 Elevated erythrocyte sedimentation rate (principal); F32.9 Major depressive disorder, single episode, unspecified; E78.5 Hyperlipidemia, unspecified; G89.29 Other chronic pain; M19.90 Unspecified osteoarthritis, unspecified site; M25.512 Pain in left shoulder | CPT/HCPCS: 86160; 86162; 86235; 86255; 86376 ==

== ENCOUNTER → 2022-04-06 14:16 | Outpatient (BNVA) | payer MEDICAID, SELFPAY | PROVIDERS: PCP Family Medicine Adult Medicine; Visit Provider Specialist | DX: M19.012 Primary osteoarthritis, left shoulder (principal) | CPT/HCPCS: 99213 ==

== ENCOUNTER → 2022-06-15 09:44 | Outpatient (BNVA) | payer MEDICAID, SELFPAY | PROVIDERS: PCP Family Medicine Adult Medicine; Visit Provider Internal Medicine Rheumatology | DX: M54.2 Cervicalgia (principal); M43.12 Spondylolisthesis, cervical region; M19.012 Primary osteoarthritis, left shoulder; M67.912 Unspecified disorder of synovium and tendon, left shoulder; M47.812 Spondylosis without myelopathy or radiculopathy, cervical region | CPT/HCPCS: 72040; 99204 ==

== ENCOUNTER 2022-08-05 14:25 | Outpatient (CLI) | payer MEDICAID, SELFPAY ==
--- NOTE | 2022-08-05 14:31 | MR_ITS ---
WS: [id number] MRI CERVICAL SPINE NONCONTRAST HISTORY: M47.812 - Spondylosis without myelopathy or radiculopathy... COMPARISON: Radiograph 06/15/2022 Technique: Multiplanar, multisequence noncontrast imaging of the cervical spine. Increased in the cervical lordosis. C2 anterolisthesis by 2 mm. C3 retrolisthesis by 3 mm. Disc spaces are narrowed and desiccated throughout the cervical spine but most significant at C3-4 an d C4-5. No fractures or marrow edema. Craniocervical junction, C1 and C2 relationship, odontoid process and soft tissues are normal. C2-C3: Normal. C3-C4: Mild osteophytic ridging. Bilateral facet joint arthritis. Mild central and moderate foraminal stenosis. C4-C5: Marked osteophytic ridging moderate central and bilateral foraminal stenosis and facet arthrit is. C5-C6: Diffuse annular disc bulging with bilateral foraminal osteophytes. Facet joint arthritis. Mode rate central and bilateral foraminal stenosis. C6-C7: Mild annular disc bulge with bilateral facet joint arthritis. Mild central and moderate forami nal stenosis. C7-T1: No significant stenosis. Paraspinal soft tissue are normal. MR/MR cervical spine wo/w [id number] IMPRESSION: 1. Quality of this examination is compromised and suboptimal. 2. Multilevel central and foraminal stenosis and facet arthritis. Due to combi nation of disc, osteophyte and arthritis. 3. Moderate central and bilateral foraminal stenosis at C4-5 and C5-6. 4. Mild central and moderate bilateral foraminal stenosis at C3-4 and C6-7.
[2022-08-05] MEDS: gadobenate dimeglumine 20 mL vial IV (15:12)
== END 2022-08-05 14:26 | disposition home or self-care (01) ==
PROVIDERS: PCP Family Medicine Adult Medicine; Visit Provider Internal Medicine Rheumatology
DX: M47.812 Spondylosis without myelopathy or radiculopathy, cervical region (principal); M48.02 Spinal stenosis, cervical region
CPT/HCPCS: 72156; A9577

== ENCOUNTER → 2022-09-27 10:52 | Outpatient (BNVA) | payer MEDICAID, SELFPAY | PROVIDERS: PCP Family Medicine Adult Medicine; Visit Provider Family Medicine Adult Medicine | DX: E78.5 Hyperlipidemia, unspecified (principal); J44.9 Chronic obstructive pulmonary disease, unspecified; R70.0 Elevated erythrocyte sedimentation rate; N18.2 Chronic kidney disease, stage 2 (mild); K74.60 Unspecified cirrhosis of liver | CPT/HCPCS: 80053; 80061; 85025 ==

== ENCOUNTER 2022-10-10 14:48 | Outpatient (CLI) | payer MEDICAID, SELFPAY ==
--- NOTE | 2022-10-10 14:45 | CT_ITS ---
WS: [id number] LDCT LUNG CANCER SCREENING HISTORY: annual lung CT TECHNIQUE: Axial imaging performed from the apices to 1 cm below the costophrenic angles. Coronal and sagittal reformats are submitted with axial MIP series. All CT scans at [facility] use at least one of these dose optimization techniques: automated exposure control; mA and/or kV adjustment per patient size (includes targeted exams where dose is matched to clinical indication); or iterativ e reconstruction. DLP: 52.39 mGy.cm DIvol: Mean CTDIvol: 0.80 (mGy) COMPARISON: 03/01/2022 Diagnostic quality: Satisfactory Lungs: Chronic hyperexpansion and emphysema. Benign scattered granulomata. There is a small cluster o f nodules in the central RIGHT lower lobe which are new. Largest nodule measures 3 mm. Heart: Normal size heart with no pericardial effusion.. Other findings: Mild atherosclerosis aorta. Normal size pulmonary artery. No adenopathy. Small hiatal hernia. No adrenal mass. Prior cholecystectomy. Mild thoracic spondylosis. CT/CT lung screening [id number] IMPRESSION: LUNG-RADS: 2-Benign Appearance or Behavior FOLLOW UP: 12 Month: Continue annual screening with LDCT OTHER FINDINGS (S MODIFIER): None.
== END 2022-10-10 14:49 | disposition home or self-care (01) ==
PROVIDERS: PCP Family Medicine Adult Medicine; Visit Provider Family Medicine Adult Medicine
DX: Z12.2 Encounter for screening for malignant neoplasm of respiratory organs (principal); J44.9 Chronic obstructive pulmonary disease, unspecified
CPT/HCPCS: 71271; 80053; 80061; 85025

== ENCOUNTER → 2023-02-21 10:59 | Outpatient (BNVA) | payer MEDICAID, SELFPAY | PROVIDERS: PCP Family Medicine Adult Medicine; Visit Provider Family Medicine Adult Medicine | DX: R63.4 Abnormal weight loss (principal); J44.9 Chronic obstructive pulmonary disease, unspecified; N18.2 Chronic kidney disease, stage 2 (mild) | CPT/HCPCS: 80053; 84443; 85025 ==

== ENCOUNTER 2023-03-14 13:21 | Outpatient (CLI) | payer MEDICAID, SELFPAY ==
--- NOTE | 2023-03-14 13:25 | MM_ITS ---
WS: [email or web address] BILATERAL 3D TOMOSYNTHESIS DIGITAL SCREENING MAMMOGRAPHY WITH CAD CLINICAL INFORMATION: SCREENING HISTORY: Screening mammogram. No current complaints. COMPARISON: 2021 TECHNIQUE: Bilateral CC and MLO views. FINDINGS: Scattered fibroglandular densities bilaterally. No suspicious focal mass, asymmetry, calcifications, or architectural distortion. No evidence of malignancy. Vascular calcification. IMPRESSION: MM/[place] [id number] BI-RADS: 2-Benign FOLLOW UP: 1 Year Follow-up Recommend return to annual screening mammography.
== END 2023-03-14 13:22 | disposition home or self-care (01) ==
LOC: RAD 13:22
PROVIDERS: PCP Family Medicine Adult Medicine; Visit Provider Family Medicine Adult Medicine
DX: Z12.31 Encounter for screening mammogram for malignant neoplasm of breast (principal)
CPT/HCPCS: 77063; 77067

== ENCOUNTER 2023-05-04 16:36 | Emergency (ER) | payer MEDICAID, SELFPAY ==
[2023-05-04 16:45] VITALS: BP 159/91; PULSE 111; RESP 16; TEMP 36.7; O2SAT 95; BMI 19.5
--- NOTE | 2023-05-04 17:28 | W.ED.EXTPRO ---
HPI - Extremity Problem General: Chief complaint: Extremity Injury, Upper Stated complaint: right arm wound Time Seen by Provider: 05/04/23 17:10 Source: patient Mode of arrival: ambulatory Limitations: no limitations History of Present Illness: 62-year-old female who states she had a fall today and she has a skin tear to her right forearm. She denies hitting her head denies any pain anywhere states that she is not up-to-date on her tetanus she denies any other injuries. Associated symptoms: Deny chest pain, fever(s) or rash Review of Systems Const: Denies: fever(s) or chills ENMT: Denies: throat pain or dental pain Card: Denies: chest pain Resp: Denies: dyspnea GI: Denies: abdominal pain, nausea, vomiting or diarrhea Musc: Denies: neck pain or back pain Skin/Breast: Denies: rash Neuro: Denies: headache(s) PFSH ED PFSH: Medical History Chorea Weight loss of more than 10% body weight Generalized headaches Former smoker, stopped smoking in distant past Quit in 2012, 40 pp/year history CFS (chronic fatigue syndrome) Depression Dyslipidemia CKD (chronic kidney disease) stage 2, GFR 60-89 ml/min COPD (chronic obstructive pulmonary disease) Seizure Generalized anxiety disorder GERD (gastroesophageal reflux disease) Osteoarthritis (arthritis due to wear and tear of joints) Hips, shoulders, neck and back. ETOH abuse Cirrhosis History of hepatitis C virus infection Surgical History H/O total hip arthroplasty Dr. Leal 12/15/2020 Left total Hip replacement Status post total hip replacement, left Surgery 12-15-2020: [place] total hip system, implants: 48 mm Trident II solid back acetabular shell, an MDM cementless liner 38 mm inner diameter by D alpha code and Accolade II size 5 with a 132 degree neck angle hip stem and a head size 22.2 mm outer diameter +0 mm neck offset with a buddhist X3 insert size 22.2 mm inner diameter by 38D History of tonsillectomy History of tubal ligation History of tonsillectomy and adenoidectomy History of cholecystectomy Social History Smoking and tobacco/nicotine status: former use of tobacco/nicotine Alcohol intake: current Alcohol intake frequency: holidays/special occasions only Substance/Drug Use: never Lives independently: Yes Household members: family Marital status: Single Current occupational status: disabled Current gender identity: Female Physical Exam Const: COMMON NORMALS: no acute distress, patient oriented x3 and healthy appearing HENMT: COMMON NORMALS: normocephalic and atraumatic HEAD & SCALP: normocephalic and atraumatic Eye: COMMON NORMALS: Equal, round and reactive pupils present and EOMs intact bilaterally PUPIL: Yes Equal, round and reactive pupils present Neck/C-Spine: COMMON NORMALS: full ROM and supple CERVICAL SPINE: No pain with cervical ROM and No Cervical spine tenderness Chest: COMMONS NORMALS: normal inspection of the chest Resp: COMMON NORMALS: normal respiratory effort Extremity: COMMON NORMALS: full ROM NARRATIVE EXTREMITY EXAM: Large skin tear to right forearm no obvious deformities Neuro: COMMON NORMALS: patient oriented x3, moves all extremities and no focal motor deficits Psych: COMMON NORMALS: mental status grossly normal, Normal thought process present and cooperative THOUGHT PROCESS: Normal thought process present Skin: COMMON NORMALS: no rashes or lesions noted and no wounds GENERAL SKIN EXAM: no rashes or lesions noted Course Vital Signs: Vital signs: Vital Signs Temperature 98.1 F 05/04/23 16:45 Pulse Rate 111 H 05/04/23 16:45 Respiratory Rate 16 05/04/23 16:45 Blood Pressure 159/91 05/04/23 16:45 Pulse Oximetry 95 05/04/23 16:45 Oxygen Delivery Me thod Room Air 05/04/23 16:45 MDM - Extremity (Nontraumatic) Medical Decision Making Patient presents here with a skin tear she had no signs of any injuries did not need any imaging I did update her tetanus not able to suture the skin tear as it is very superficial. Skin is very thin did dress the wound she is follow-up with PCP and return if worsening. No radiology studies performed this visit Discharge Plan Discharge Patient Disposition: Home Clinical Impression: Skin tear, Fall Condition: Stable Prescriptions: No Action lorazepam [Ativan] 1 mg tablet 2 mg PO DAILY PRN (Reason: Anxiety) multivitamin Tablet 1 tab PO DAILY duloxetine 60 mg capsule,delayed release(DR/EC) 60 mg PO DAILY primidone 250 mg tablet 250 mg PO ONCE [place] 6 mg tablet 12 mg PO BID clotrimazole-betamethasone 1-0.05 % lotion 1 applic topical BID 14 Days Qty: 30 0RF cephalexin 500 mg capsule 500 mg PO TID 10 Days Qty: 30 0RF mupirocin 2 % ointment 1 applic topical BID Qty: 15 0RF celecoxib 200 mg capsule 200 mg PO DAILY PRN (Reason: pain) Qty: 30 3RF [place] 9 mg tablet 18 mg PO BID simvastatin 10 mg tablet See Rx Instructions .ROUTE .COMPLEX Qty: 30 5RF Dose Instruction: TAKE 1 TABLET BY MOUTH EVERY DAY Rx Instructions: TAKE 1 TABLET BY MOUTH EVERY DAY ipratropium-albuterol 0.5 mg-3 mg(2.5 mg base)/3 mL solution for nebulization 3 ml INHALATION QID PRN (Reason: wheezing) Qty: 90 2RF Combivent Respimat 20-100 mcg/actuation mist See Rx Instructions .ROUTE .COMPLEX Qty: 4 5RF Dose Instruction: INHALE 1 PUFF BY MOUTH EVERY 4 HOURS FOR SHORTNESS OF BREATH OR WHEEZING Rx Instructions: INHALE 1 PUFF BY MOUTH EVERY 4 HOURS FOR SHORTNESS OF BREATH OR WHEEZING spironolactone 25 mg tablet See Rx Instructions .ROUTE .COMPLEX Qty: 30 5RF Dose Instruction: TAKE 1 TABLET BY MOUTH EVERY DAY Rx Instructions: TAKE 1 TABLET BY MOUTH EVERY DAY Symbicort 160-4.5 mcg/actuation HFA aerosol inhaler See Rx Instructions .ROUTE .COMPLEX Qty: 10.2 3RF Dose Instruction: TAKE 2 PUFFS BY MOUTH TWICE A DAY Rx Instructions: TAKE 2 PUFFS BY MOUTH TWICE A DAY albuterol sulfate [Ventolin HFA] 90 mcg/actuation HFA aerosol inhaler See Rx Instructions .ROUTE .COMPLEX Qty: 18 5RF Dose Instruction: INHALE 2 PUFFS BY MOUTH EVERY 6 HOURS NEEDED FOR WHEEZING FOR 30 DAYS Rx Instructions: INHALE 2 PUFFS BY MOUTH EVERY 6 HOURS NEEDED FOR WHEEZING FOR 30 DAYS tiotropium bromide [Spiriva with HandiHaler] 18 mcg capsule, w/inhalation device See Rx Instructions .ROUTE .COMPLEX Qty: 30 3RF Dose Instruction: INHALE 1 CAPSULE VIA HANDIHALER EVERY DAY Rx Instructions: INHALE 1 CAPSULE VIA HANDIHALER EVERY DAY Discharge Orders: Discharge ED (Routine); Ordered 05/04/23 Ordered By: Birgit Salinas Referrals: Willie Gipson MD [Primary Care Provider] - 1-3 days Discharge Diet: Advance as tolerated Discharge Activity: Resume usual activity Patient Instructions: Skin Tear (ED) Coding Level of Care Code ED Family Health Nurse Practitioner for Demetrius Escobedo
--- NOTE | 2023-05-04 18:16 | PC.NURSE ---
Offered patient tetanus shot and patient stated she just wanted her skin tears bandaged and she wanted to leave. Patient was very impatient.
== END 2023-05-04 18:19 | disposition home or self-care (01) ==
PROVIDERS: Emergency Provider Emergency Medicine; PCP Family Medicine Adult Medicine
DX: S51.811A Laceration without foreign body of right forearm, initial encounter (principal); Z87.891 Personal history of nicotine dependence; E78.5 Hyperlipidemia, unspecified; N18.2 Chronic kidney disease, stage 2 (mild); J44.9 Chronic obstructive pulmonary disease, unspecified; Z86.19 Personal history of other infectious and parasitic diseases; W19.XXXA Unspecified fall, initial encounter
CPT/HCPCS: 99282